=== PATIENT | female | born 1935 | race Two or more races ===

== ENCOUNTER 2020-11-27 07:34 | Inpatient (IN) | payer OTHER ==
[2020-11-27] MEDS ORDERED: DIPHTH,PERTUSS(ACELL),TET 0.5 ML DISP.SYRIN IM ONE ×3 (08:34→11:17)
[2020-11-27 08:39] VITALS: BMI 23.5
[2020-11-27 11:07] LABS: BASO % 0.8 % (0-2.0); HEMATOCRIT 38.3 % (32.4-45.2); HEMOGLOBIN 13.1 GM/dL (10.7-15.3); LYMPH % 22.1 % (8-40); MCH 32.7 pg (25.7-33.7); MCHC 34.3 g/dl (32.0-36.0); MEAN CELL VOLUME 95.5 fl (80-96); MEAN PLT VOLUME 7.2 fl (7.5-11.1); MONO % 6.8 % (3.8-10.2); NEUT % 67.3 % (42.8-82.8); PLATELET COUNT 362 10^3/uL (134-434); RBC 4.02 M/mm3 (3.60-5.2); RDW 14.5 % (11.6-15.6); WHITE BLOOD COUNT 9.6 K/mm3 (4.0-10.0)
[2020-11-27 11:09] LABS: EPI CELLS 3 /uL (0-25.1); HYALINE CASTS 0 /uL (0-3.1); URINE APPEARANCE CLEAR; URINE BACTERIA 70 /uL (0-1359); URINE BILIRUBIN NEGATIVE (NEGATIVE); URINE COLOR YELLOW; URINE GLUCOSE (UA) NEGATIVE (NEGATIVE); URINE KETONE NEGATIVE (NEGATIVE); URINE LEUK ESTERASE TRACE (NEGATIVE); URINE NITRITE NEGATIVE (NEGATIVE); URINE PROTEIN NEGATIVE (NEGATIVE); URINE RBC 12 /uL (0-23.9); URINE UROBILINOGEN 0.2 mg/dL (0.2-1.0); URINE WBC 27 /uL (0-25.8)
[2020-11-27 11:14] LABS: INR 1.16 (0.83-1.09); PROTHROMBIN TIME (PATIENT) 14.3 SEC (9.7-13.0)
[2020-11-27 11:17] LABS: ACTIVATED PTT 30.7 SECONDS (25.2-36.5)
[2020-11-27 11:27] LABS: CHLORIDE 104 mmol/L (98-107); SODIUM 135 mmol/L (136-145)
[2020-11-27 11:31] LABS: ALBUMIN 3.4 g/dl (3.4-5.0); ANION GAP 3 MMOL/L (8-16); BLOOD UREA NITROGEN 12.5 mg/dL (7-18); CALCIUM 8.9 mg/dL (8.5-10.1); CO2 27 mmol/L (21-32); GLUCOSE,RANDOM 99 mg/dL (74-106)
[2020-11-27 11:35] LABS: CREATININE 0.6 mg/dL (0.55-1.3); SGOT/AST 37 U/L (15-37); SGPT/ALT 35 U/L (13-61)
[2020-11-27 11:37] LABS: ALK PHOS 90 U/L (45-117)
[2020-11-27 14:48] LABS: BLOOD UREA NITROGEN 12.2 mg/dL (7-18); CALCIUM 9.2 mg/dL (8.5-10.1)
[2020-11-27 14:52] LABS: CREATININE 0.7 mg/dL (0.55-1.3)
[2020-11-28] MEDS ORDERED: MELATONIN 1 MG TABLET PO ONE (02:49)
[2020-11-28 07:26] LABS: HEMATOCRIT 37.4 % (32.4-45.2); HEMOGLOBIN 12.7 GM/dL (10.7-15.3); MCH 32.6 pg (25.7-33.7); MCHC 33.8 g/dl (32.0-36.0); MEAN CELL VOLUME 96.4 fl (80-96); MEAN PLT VOLUME 7.3 fl (7.5-11.1); PLATELET COUNT 371 10^3/uL (134-434); RBC 3.88 M/mm3 (3.60-5.2); RDW 14.4 % (11.6-15.6); WHITE BLOOD COUNT 8.1 K/mm3 (4.0-10.0)
[2020-11-28 08:18] LABS: ALBUMIN 3.2 g/dl (3.4-5.0); BLOOD UREA NITROGEN 16.4 mg/dL (7-18); CALCIUM 8.7 mg/dL (8.5-10.1)
[2020-11-28 08:19] LABS: BILIRUBIN,TOTAL 0.7 mg/dL (0.2-1)
[2020-11-28 08:20] LABS: CREATININE 0.7 mg/dL (0.55-1.3)
[2020-11-28 08:21] LABS: TOT PROT 6.4 g/dl (6.4-8.2)
[2020-11-28] MEDS: ATORVASTATIN CA 80 MG TABLET (FP) PO SCH (21:34)
[2020-11-28] MEDS: FAMOTIDINE 20 MG TABLET PO SCH (21:34)
[2020-11-28] MEDS: METOPROLOL TARTRATE 25 MG TABLET (FP) PO SCH (21:34)
[2020-11-28] MEDS: MELATONIN 1 MG TABLET PO PRN (22:08)
[2020-11-29 07:33] LABS: HEMATOCRIT 36.3 % (32.4-45.2); HEMOGLOBIN 12.4 GM/dL (10.7-15.3); MCH 32.4 pg (25.7-33.7); MCHC 34.1 g/dl (32.0-36.0); MEAN CELL VOLUME 94.9 fl (80-96); MEAN PLT VOLUME 7.3 fl (7.5-11.1); PLATELET COUNT 337 10^3/uL (134-434); RBC 3.82 M/mm3 (3.60-5.2); RDW 14.3 % (11.6-15.6); WHITE BLOOD COUNT 7.7 K/mm3 (4.0-10.0)
[2020-11-29 07:45] LABS: ALBUMIN 3.1 g/dl (3.4-5.0); BLOOD UREA NITROGEN 11.3 mg/dL (7-18); CALCIUM 8.7 mg/dL (8.5-10.1)
[2020-11-29 07:48] LABS: CREATININE 0.5 mg/dL (0.55-1.3)
[2020-11-29 07:50] LABS: BILIRUBIN,TOTAL 0.8 mg/dL (0.2-1); TOT PROT 6.4 g/dl (6.4-8.2)
[2020-11-29 08:52] LABS: ANISOCYTOSIS 0; HELMET CELLS 0; HOWELL-JOLLY BODIES 0; MACROCYTOSIS 0; OVALOCYTE 0; PLATELET ESTIMATE NORMAL; ROULEAU 0; SICKELED CELLS 0; TARGET CELLS 0; TEAR DROP CELLS 0; TOXIC GRANULATION 0
[2020-11-29] MEDS: SERTRALINE HCL 50 MG TABLET (FP) PO SCH (09:38)
[2020-11-29] MEDS: METOPROLOL TARTRATE 25 MG TABLET (FP) PO SCH ×2 (09:38→23:03)
[2020-11-29] MEDS: CLOPIDOGREL BISULFATE 75 MG TABLET (FP) PO SCH (09:38)
[2020-11-29] MEDS: APIXABAN 5 MG TABLET PO SCH ×2 (09:38→23:04)
[2020-11-29] MEDS: MELATONIN 1 MG TABLET PO PRN (23:03)
[2020-11-29] MEDS: FAMOTIDINE 20 MG TABLET PO SCH (23:03)
[2020-11-29] MEDS: ATORVASTATIN CA 80 MG TABLET (FP) PO SCH (23:04)
[2020-11-30] MEDS: METOPROLOL TARTRATE 25 MG TABLET (FP) PO SCH ×2 (10:27→21:37)
[2020-11-30] MEDS: SERTRALINE HCL 50 MG TABLET (FP) PO SCH (10:27)
[2020-11-30] MEDS: CLOPIDOGREL BISULFATE 75 MG TABLET (FP) PO SCH (10:28)
[2020-11-30] MEDS: APIXABAN 5 MG TABLET PO SCH ×2 (10:28→21:37)
[2020-11-30] MEDS: MELATONIN 1 MG TABLET PO PRN (21:37)
[2020-11-30] MEDS: FAMOTIDINE 20 MG TABLET PO SCH (21:37)
[2020-11-30] MEDS: ATORVASTATIN CA 80 MG TABLET (FP) PO SCH (21:37)
[2020-12-01] MEDS: CLOPIDOGREL BISULFATE 75 MG TABLET (FP) PO SCH (09:43)
[2020-12-01] MEDS: APIXABAN 5 MG TABLET PO SCH ×2 (09:43→22:11)
[2020-12-01] MEDS: METOPROLOL TARTRATE 25 MG TABLET (FP) PO SCH ×2 (09:43→22:11)
[2020-12-01] MEDS: SERTRALINE HCL 50 MG TABLET (FP) PO SCH (09:43)
[2020-12-01] MEDS: ATORVASTATIN CA 80 MG TABLET (FP) PO SCH (22:11)
[2020-12-01] MEDS: MELATONIN 1 MG TABLET PO PRN (22:11)
[2020-12-01] MEDS: FAMOTIDINE 20 MG TABLET PO SCH (22:11)
[2020-12-02] MEDS: APIXABAN 5 MG TABLET PO SCH ×2 (09:50→21:50)
[2020-12-02] MEDS: CLOPIDOGREL BISULFATE 75 MG TABLET (FP) PO SCH (09:50)
[2020-12-02] MEDS: SERTRALINE HCL 50 MG TABLET (FP) PO SCH (09:50)
[2020-12-02] MEDS: METOPROLOL TARTRATE 25 MG TABLET (FP) PO SCH ×2 (09:50→21:50)
[2020-12-02] MEDS: ATORVASTATIN CA 80 MG TABLET (FP) PO SCH (21:50)
[2020-12-02] MEDS: FAMOTIDINE 20 MG TABLET PO SCH (21:50)
[2020-12-03] MEDS: SERTRALINE HCL 50 MG TABLET (FP) PO SCH (09:12)
[2020-12-03] MEDS: CLOPIDOGREL BISULFATE 75 MG TABLET (FP) PO SCH (09:12)
[2020-12-03] MEDS: METOPROLOL TARTRATE 25 MG TABLET (FP) PO SCH (09:12)
[2020-12-03] MEDS: APIXABAN 5 MG TABLET PO SCH (09:12)
[2020-12-03 15:03] VITALS: BP 113/60; PULSE 65; TEMP 98.1
== END 2020-12-03 15:00 | DRG 312 ==
LOC: JER 07:34 → JERBED 08:37 → OBSVTOIN 15:39 → J4W 23:45
PROVIDERS: ADMIT Family Medicine; ATTEND Family Medicine
DX: R55 Syncope and collapse (principal); I27.82 Chronic pulmonary embolism; G81.94 Hemiplegia, unspecified affecting left nondominant side; I25.10 Atherosclerotic heart disease of native coronary artery without angina pectoris; E78.5 Hyperlipidemia, unspecified; F32.9 Major depressive disorder, single episode, unspecified; S09.90XA Unspecified injury of head, initial encounter; F20.9 Schizophrenia, unspecified; S00.01XA Abrasion of scalp, initial encounter; W19.XXXA Unspecified fall, initial encounter; Y93.89 Activity, other specified; Y92.129 Unspecified place in nursing home as the place of occurrence of the external cause; Y99.8 Other external cause status; S63.501A Unspecified sprain of right wrist, initial encounter
CPT/HCPCS: 36415; 70450-TC; 70551-TC; 71046-TC-FY; 72125-TC; 72170-TC-FY; 73110-TC-RT-FY; 73130-TC-RT-FY; 73200-TC-RT; 80048; 80053; 80061; 81003; 82550; 82553; 84439; 84443; 84484; 85025; 85027; 85610; 85730; 87086; 87186; 90715; 93005; 93010; 93306-TC; 93880-TC; 97116-GP; 97161-GP; 99285-25; C9803; G0378; U0003; U0005

== ENCOUNTER 2021-01-03 21:02 | Inpatient (IN) | payer OTHER ==
[2021-01-03 22:28] LABS: BASO % 0.5 % (0-2.0); EOS % 3.5 % (0-4.5); HEMATOCRIT 38.3 % (32.4-45.2); HEMOGLOBIN 13.3 GM/dL (10.7-15.3); LYMPH % 22.1 % (8-40); MCH 32.9 pg (25.7-33.7); MCHC 34.8 g/dl (32.0-36.0); MEAN CELL VOLUME 94.6 fl (80-96); MEAN PLT VOLUME 6.4 fl (7.5-11.1); MONO % 8.2 % (3.8-10.2); NEUT % 65.7 % (42.8-82.8); PLATELET COUNT 356 10^3/uL (134-434); RBC 4.05 M/mm3 (3.60-5.2); RDW 14.4 % (11.6-15.6); VENOUS BASE EXCESS -3.3 mmol/L (-2-2); VENOUS O2 SATURATION 98.2 % (70-80); VENOUS PCO2 34.1 mmHg (38-52); VENOUS PH 7.4 (7.310-7.410); WHITE BLOOD COUNT 8.5 K/mm3 (4.0-10.0)
[2021-01-03 22:37] LABS: INR 1.4 (0.83-1.09); PROTHROMBIN TIME (PATIENT) 16.4 SEC (9.7-13.0)
[2021-01-03 22:51] LABS: ALBUMIN 3.2 g/dl (3.4-5.0); BLOOD UREA NITROGEN 13.1 mg/dL (7-18); CALCIUM 8.7 mg/dL (8.5-10.1)
[2021-01-03 22:54] LABS: CREATININE 0.5 mg/dL (0.55-1.3)
[2021-01-03 22:55] LABS: BILIRUBIN,TOTAL 0.7 mg/dL (0.2-1)
[2021-01-03 22:56] LABS: TOT PROT 6.4 g/dl (6.4-8.2)
[2021-01-04 05:09] LABS: URINE COLOR YELLOW
[2021-01-04 05:10] LABS: URINE APPEARANCE CLEAR; URINE BILIRUBIN NEGATIVE (NEGATIVE); URINE GLUCOSE (UA) NEGATIVE (NEGATIVE); URINE KETONE NEGATIVE (NEGATIVE); URINE NITRITE NEGATIVE (NEGATIVE); URINE PROTEIN NEGATIVE (NEGATIVE); URINE UROBILINOGEN 0.2 mg/dL (0.2-1.0)
[2021-01-04 05:11] LABS: URINE LEUK ESTERASE 1+ (NEGATIVE)
[2021-01-04] MEDS ORDERED: SODIUM CHLORIDE 1,000 ML IV SCH (06:00)
[2021-01-04] MEDS ORDERED: POTASSIUM CHLORIDE 10 MEQ in DEXTROSE 5%-NORMAL SALINE 995 ML IV SCH (09:00)
[2021-01-04 11:45] LABS: PH,URINE 6.5 (5.0-8.0); URINE APPEARANCE Clear; URINE BILIRUBIN Negative (NEGATIVE); URINE COLOR Yellow; URINE GLUCOSE (UA) Negative (NEGATIVE); URINE KETONE Negative (NEGATIVE); URINE LEUK ESTERASE Trace (NEGATIVE); URINE NITRITE Negative (NEGATIVE); URINE PROTEIN Negative (NEGATIVE); URINE UROBILINOGEN 0.2 mg/dL (0.2-1.0)
[2021-01-04] MEDS: METOPROLOL TARTRATE 25 MG TABLET (FP) PO SCH ×2 (11:46→22:18)
[2021-01-04] MEDS: CLOPIDOGREL BISULFATE 75 MG TABLET (FP) PO SCH (11:47)
[2021-01-04] MEDS: APIXABAN 5 MG TABLET PO SCH ×2 (11:47→22:18)
[2021-01-04 12:07] LABS: EPI CELLS RARE /HPF; URINE RBC 0-2 /hpf (0-4); URINE WBC 0-2 (NEGATIVE)
[2021-01-04 12:15] LABS: BASO % 0.7 % (0-2.0); EOS % 3.3 % (0-4.5); HEMATOCRIT 40.5 % (32.4-45.2); HEMOGLOBIN 14.2 GM/dL (10.7-15.3); MCH 32.5 pg (25.7-33.7); MCHC 35.1 g/dl (32.0-36.0); MEAN CELL VOLUME 92.7 fl (80-96); MEAN PLT VOLUME 6.3 fl (7.5-11.1); MONO % 9.7 % (3.8-10.2); NEUT % 62.3 % (42.8-82.8); PLATELET COUNT 347 10^3/uL (134-434); RBC 4.37 M/mm3 (3.60-5.2); RDW 14.5 % (11.6-15.6); WHITE BLOOD COUNT 7.4 K/mm3 (4.0-10.0)
[2021-01-04 12:24] LABS: ALBUMIN 3.3 g/dl (3.4-5.0); CALCIUM 9.2 mg/dL (8.5-10.1)
[2021-01-04 12:25] LABS: BLOOD UREA NITROGEN 10.9 mg/dL (7-18)
[2021-01-04 12:28] LABS: CREATININE 0.5 mg/dL (0.55-1.3)
[2021-01-04 12:29] LABS: BILIRUBIN,TOTAL 1.2 mg/dL (0.2-1); TOT PROT 6.7 g/dl (6.4-8.2)
[2021-01-04] MEDS ORDERED: PT OWN MED DRAWER 7, Y5N ONE (12:59)
[2021-01-04] MEDS ORDERED: SODIUM CHLORIDE 1 GM TABLET PO ONE (14:15)
[2021-01-04] MEDS: QUEtiapine FUMARATE 50 MG TABLET PO SCH (22:18)
[2021-01-04] MEDS: ATORVASTATIN CA 80 MG TABLET (FP) PO SCH (22:18)
[2021-01-05] MEDS: METOPROLOL TARTRATE 25 MG TABLET (FP) PO SCH ×2 (10:05→21:43)
[2021-01-05] MEDS: APIXABAN 5 MG TABLET PO SCH ×2 (10:05→21:43)
[2021-01-05] MEDS: PANTOPRAZOLE SODIUM 40 MG VIAL IVPUSH SCH (10:05)
[2021-01-05] MEDS: CLOPIDOGREL BISULFATE 75 MG TABLET (FP) PO SCH (10:05)
[2021-01-05] MEDS: QUEtiapine FUMARATE 25 MG TABLET PO SCH (10:05)
[2021-01-05] MEDS: ATORVASTATIN CA 80 MG TABLET (FP) PO SCH (21:43)
[2021-01-05] MEDS: QUEtiapine FUMARATE 50 MG TABLET PO SCH (21:44)
[2021-01-06 10:08] LABS: BASO % 0.6 % (0-2.0); EOS % 4.8 % (0-4.5); HEMOGLOBIN 13.8 GM/dL (10.7-15.3); LYMPH % 22.5 % (8-40); MCH 32.9 pg (25.7-33.7); MCHC 34.5 g/dl (32.0-36.0); MEAN CELL VOLUME 95.4 fl (80-96); MEAN PLT VOLUME 6.6 fl (7.5-11.1); MONO % 10.1 % (3.8-10.2); PLATELET COUNT 356 10^3/uL (134-434); RDW 14.2 % (11.6-15.6); WHITE BLOOD COUNT 7.1 K/mm3 (4.0-10.0)
[2021-01-06 10:34] LABS: CALCIUM 9.4 mg/dL (8.5-10.1)
[2021-01-06 10:35] LABS: ALBUMIN 3.1 g/dl (3.4-5.0); BLOOD UREA NITROGEN 17.3 mg/dL (7-18)
[2021-01-06] MEDS: PANTOPRAZOLE SODIUM 40 MG VIAL IVPUSH SCH (10:36)
[2021-01-06] MEDS: APIXABAN 5 MG TABLET PO SCH ×2 (10:37→21:03)
[2021-01-06] MEDS: QUEtiapine FUMARATE 25 MG TABLET PO SCH (10:37)
[2021-01-06] MEDS: METOPROLOL TARTRATE 25 MG TABLET (FP) PO SCH ×2 (10:37→21:02)
[2021-01-06] MEDS: CLOPIDOGREL BISULFATE 75 MG TABLET (FP) PO SCH (10:37)
[2021-01-06 10:38] LABS: CREATININE 0.7 mg/dL (0.55-1.3)
[2021-01-06 10:39] LABS: TOT PROT 6.5 g/dl (6.4-8.2)
[2021-01-06] MEDS: ATORVASTATIN CA 80 MG TABLET (FP) PO SCH (21:03)
[2021-01-06] MEDS: QUEtiapine FUMARATE 50 MG TABLET PO SCH (21:03)
[2021-01-07] MEDS: APIXABAN 5 MG TABLET PO SCH ×2 (10:36→21:01)
[2021-01-07] MEDS: METOPROLOL TARTRATE 25 MG TABLET (FP) PO SCH ×2 (10:36→21:01)
[2021-01-07] MEDS: CLOPIDOGREL BISULFATE 75 MG TABLET (FP) PO SCH (10:36)
[2021-01-07] MEDS: QUEtiapine FUMARATE 25 MG TABLET PO SCH (10:36)
[2021-01-07] MEDS: PANTOPRAZOLE SODIUM 40 MG VIAL IVPUSH SCH (10:36)
[2021-01-07] MEDS: QUEtiapine FUMARATE 50 MG TABLET PO SCH (21:01)
[2021-01-07] MEDS: ATORVASTATIN CA 80 MG TABLET (FP) PO SCH (21:01)
[2021-01-07 22:59] VITALS: BMI 26.6
[2021-01-08] MEDS: APIXABAN 5 MG TABLET PO SCH (09:55)
[2021-01-08] MEDS: METOPROLOL TARTRATE 25 MG TABLET (FP) PO SCH (09:55)
[2021-01-08] MEDS: QUEtiapine FUMARATE 25 MG TABLET PO SCH (09:55)
[2021-01-08] MEDS: CLOPIDOGREL BISULFATE 75 MG TABLET (FP) PO SCH (09:55)
[2021-01-08] MEDS: PANTOPRAZOLE SODIUM 40 MG VIAL IVPUSH SCH (10:00)
[2021-01-08] MEDS ORDERED: MULTIVITAMINS (DAILY MVI) TABLET (FP) PO SCH (11:30)
[2021-01-08 14:50] VITALS: BP 114/72; PULSE 73; TEMP 98.1
== END 2021-01-08 20:10 | DRG 918 ==
LOC: JER 21:02 → JERBED 23:00 → J6S 01-04 07:51
PROVIDERS: ADMIT Family Medicine; ATTEND Family Medicine
DX: T51.0X2A Toxic effect of ethanol, intentional self-harm, initial encounter (principal); E87.1 Hypo-osmolality and hyponatremia; I27.82 Chronic pulmonary embolism; E78.5 Hyperlipidemia, unspecified; F03.90 Unspecified dementia, unspecified severity, without behavioral disturbance, psychotic disturbance, mood disturbance, and anxiety; I25.10 Atherosclerotic heart disease of native coronary artery without angina pectoris; I10 Essential (primary) hypertension; F20.9 Schizophrenia, unspecified
CPT/HCPCS: 36415; 70450-TC; 71045-TC-FY; 72125-TC; 80053; 80307; 81003; 82010; 82140; 82436; 82550; 82607; 82803; 82962; 83930; 83935; 84133; 84300; 84439; 84443; 84484; 85025; 85610; 85730; 86780; 87086; 93005; 93010; 97116-GP; 97162-GP; 99285-25; C9803; U0003; U0005

== ENCOUNTER 2021-04-27 13:13 | Emergency (ER) | payer OTHER ==
[2021-04-27 13:33] VITALS: TEMP 97.6; BMI 26.4
[2021-04-27 14:55] VITALS: BP 108/55; PULSE 71
== END 2021-04-27 17:30 | disposition home or self-care (01) ==
LOC: FER 13:13
PROC: 2W3CX1Z Immobilization of Right Lower Arm using Splint (ICD-10-PCS; principal; 2021-04-27)
DX: S09.90XA Unspecified injury of head, initial encounter (principal); M25.531 Pain in right wrist; W19.XXXA Unspecified fall, initial encounter; Y92.9 Unspecified place or not applicable
CPT/HCPCS: 29125; 70450-TC; 70486-TC; 72125-TC; 73110-TC-RT-FY; 73130-TC-RT-FY; 99285-25

== ENCOUNTER 2021-06-13 09:12 | Inpatient (IN) | payer OTHER ==
[2021-06-13 10:45] LABS: BASO % 0.1 % (0-2.0); EOS % 0.9 % (0-4.5); HEMATOCRIT 36.8 % (32.4-45.2); HEMOGLOBIN 12.6 GM/dL (10.7-15.3); LYMPH % 10.2 % (8-40); MCHC 34.2 g/dl (32.0-36.0); MEAN CELL VOLUME 93.6 fl (80-96); MONO % 9.2 % (3.8-10.2); NEUT % 79.6 % (42.8-82.8); PLATELET COUNT 253 10^3/uL (134-434); RBC 3.93 M/mm3 (3.60-5.2); RDW 14.2 % (11.6-15.6)
[2021-06-13 10:53] LABS: INR 1.36 (0.83-1.09); PROTHROMBIN TIME (PATIENT) 15.7 SEC (9.7-13.0)
[2021-06-13] MEDS ORDERED: ACETAMINOPHEN 1000 MG/100 ML BAG IVPB ONE (10:55)
[2021-06-13 10:56] LABS: ACTIVATED PTT 34.5 SECONDS (25.2-36.5)
[2021-06-13] MEDS ORDERED: ACETAMINOPHEN INJECTION 100 ML IVPB ONE (11:06)
[2021-06-13 11:13] LABS: PH,URINE 5.5 (5.0-8.0); URINE APPEARANCE Clear; URINE BILIRUBIN Negative (NEGATIVE); URINE COLOR Yellow; URINE GLUCOSE (UA) Negative (NEGATIVE); URINE KETONE Negative (NEGATIVE); URINE LEUK ESTERASE 3+ (NEGATIVE); URINE NITRITE Positive (NEGATIVE); URINE PROTEIN Trace (NEGATIVE); URINE UROBILINOGEN 0.2 mg/dL (0.2-1.0)
[2021-06-13 11:23] LABS: ALBUMIN 3.3 g/dl (3.4-5.0); BLOOD UREA NITROGEN 18.9 mg/dL (7-18); CALCIUM 8.8 mg/dL (8.5-10.1)
[2021-06-13 11:26] LABS: CREATININE 0.7 mg/dL (0.55-1.3)
[2021-06-13 11:28] LABS: BILIRUBIN,TOTAL 1.1 mg/dL (0.2-1); TOT PROT 6.6 g/dl (6.4-8.2)
[2021-06-13] MEDS: SODIUM CHLORIDE 1,000 ML IV SCH (12:43)
[2021-06-13 14:06] LABS: EPI CELLS 1 /uL (0-25.1); HYALINE CASTS 0 /uL (0-3.1); URINE BACTERIA >9,000 /uL (0-1359); URINE RBC 31 /uL (0-23.9); URINE WBC 1867 /uL (0-25.8)
[2021-06-13] MEDS ORDERED: ACETAMINOPHEN 325 MG TABLET (FP) PO PRN (16:29)
[2021-06-13] MEDS ORDERED: ATORVASTATIN CA 40 MG TABLET (FP) ONE (21:03)
[2021-06-13] MEDS: METOPROLOL TARTRATE 25 MG TABLET (FP) PO SCH (21:05)
[2021-06-13] MEDS: ATORVASTATIN CA 80 MG TABLET (FP) PO SCH (21:05)
[2021-06-13] MEDS: APIXABAN 5 MG TABLET PO SCH (21:05)
[2021-06-13] MEDS: QUEtiapine FUMARATE 25 MG TABLET PO SCH (21:05)
[2021-06-14 07:31] LABS: BASO % 0.2 % (0-2.0); EOS % 3.2 % (0-4.5); HEMATOCRIT 36.5 % (32.4-45.2); HEMOGLOBIN 12.2 GM/dL (10.7-15.3); LYMPH % 20.6 % (8-40); MCH 31.5 pg (25.7-33.7); MCHC 33.5 g/dl (32.0-36.0); MEAN CELL VOLUME 94.1 fl (80-96); MEAN PLT VOLUME 7.3 fl (7.5-11.1); MONO % 11.3 % (3.8-10.2); NEUT % 64.7 % (42.8-82.8); PLATELET COUNT 259 10^3/uL (134-434); RBC 3.88 M/mm3 (3.60-5.2); RDW 14.2 % (11.6-15.6); WHITE BLOOD COUNT 9.2 K/mm3 (4.0-10.0)
[2021-06-14 07:54] LABS: ALBUMIN 2.8 g/dl (3.4-5.0); BLOOD UREA NITROGEN 15.6 mg/dL (7-18); CALCIUM 8.2 mg/dL (8.5-10.1); MAGNESIUM 2.2 mg/dL (1.8-2.4)
[2021-06-14 07:58] LABS: CREATININE 0.6 mg/dL (0.55-1.3)
[2021-06-14 07:59] LABS: TOT PROT 6.2 g/dl (6.4-8.2)
[2021-06-14 08:00] LABS: BILIRUBIN,TOTAL 1.3 mg/dL (0.2-1)
[2021-06-14] MEDS ORDERED: CLOPIDOGREL BISULFATE 75 MG TABLET (FP) PO SCH (10:00)
[2021-06-14] MEDS ORDERED: CEFTRIAXONE 1 GM in DEXTROSE 5%-WATER - 50 ML IVPB SCH (10:00)
[2021-06-14] MEDS: FAMOTIDINE 20 MG TABLET PO SCH (10:12)
[2021-06-14] MEDS: APIXABAN 5 MG TABLET PO SCH ×2 (10:13→21:21)
[2021-06-14] MEDS: SODIUM CHLORIDE 1,000 ML IV SCH ×2 (10:13→16:51)
[2021-06-14] MEDS: METOPROLOL TARTRATE 25 MG TABLET (FP) PO SCH ×2 (10:13→21:21)
[2021-06-14 14:58] VITALS: BMI 27.3
[2021-06-14] MEDS ORDERED: DEXTROSE 5%-WATER 100 ML IVPB ONE (15:53)
[2021-06-14] MEDS: CEFTRIAXONE 2 GM in DEXTROSE 5%-WATER 100 ML IVPB SCH (15:55)
[2021-06-14] MEDS ORDERED: ATORVASTATIN CA 40 MG TABLET (FP) ONE (21:17)
[2021-06-14] MEDS: ATORVASTATIN CA 80 MG TABLET (FP) PO SCH (21:21)
[2021-06-14] MEDS: QUEtiapine FUMARATE 25 MG TABLET PO SCH (21:21)
[2021-06-15] MEDS ORDERED: DEXTROSE 5%-WATER 100 ML IVPB ONE (09:10)
[2021-06-15] MEDS: METOPROLOL TARTRATE 25 MG TABLET (FP) PO SCH ×2 (09:24→22:31)
[2021-06-15] MEDS: FAMOTIDINE 20 MG TABLET PO SCH (09:24)
[2021-06-15] MEDS: APIXABAN 5 MG TABLET PO SCH ×2 (09:24→22:30)
[2021-06-15] MEDS: SODIUM CHLORIDE 1,000 ML IV SCH ×2 (09:25→15:00)
[2021-06-15] MEDS: CEFTRIAXONE 2 GM in DEXTROSE 5%-WATER 100 ML IVPB SCH (09:25)
[2021-06-15] MEDS: ACETAMINOPHEN 325 MG TABLET (FP) PO PRN (15:31)
[2021-06-15] MEDS ORDERED: ATORVASTATIN CA 40 MG TABLET (FP) ONE (22:28)
[2021-06-15] MEDS: ATORVASTATIN CA 80 MG TABLET (FP) PO SCH (22:31)
[2021-06-15] MEDS: QUEtiapine FUMARATE 25 MG TABLET PO SCH (22:31)
[2021-06-16 08:48] LABS: BASO % 0.5 % (0-2.0); EOS % 13.5 % (0-4.5); HEMOGLOBIN 11.8 GM/dL (10.7-15.3); LYMPH % 28.6 % (8-40); MCH 31.5 pg (25.7-33.7); MCHC 33.7 g/dl (32.0-36.0); MEAN CELL VOLUME 93.6 fl (80-96); MEAN PLT VOLUME 7.3 fl (7.5-11.1); NEUT % 48.4 % (42.8-82.8); PLATELET COUNT 296 10^3/uL (134-434); RBC 3.73 M/mm3 (3.60-5.2); RDW 13.9 % (11.6-15.6); WHITE BLOOD COUNT 5.9 K/mm3 (4.0-10.0)
[2021-06-16 09:11] LABS: ALBUMIN 2.6 g/dl (3.4-5.0); BLOOD UREA NITROGEN 16.1 mg/dL (7-18); CALCIUM 7.9 mg/dL (8.5-10.1)
[2021-06-16 09:13] LABS: CREATININE 0.6 mg/dL (0.55-1.3)
[2021-06-16 09:16] LABS: BILIRUBIN,TOTAL 0.4 mg/dL (0.2-1); TOT PROT 5.9 g/dl (6.4-8.2)
[2021-06-16] MEDS ORDERED: DEXTROSE 5%-WATER 100 ML IVPB ONE (09:18)
[2021-06-16] MEDS: FAMOTIDINE 40 MG TABLET PO SCH (12:13)
[2021-06-16] MEDS: CEFTRIAXONE 2 GM in DEXTROSE 5%-WATER 100 ML IVPB SCH (12:15)
[2021-06-16] MEDS: METOPROLOL TARTRATE 25 MG TABLET (FP) PO SCH ×2 (12:15→21:01)
[2021-06-16] MEDS: APIXABAN 5 MG TABLET PO SCH ×2 (12:15→21:01)
[2021-06-16] MEDS: SODIUM CHLORIDE 1,000 ML IV SCH (15:00)
[2021-06-16] MEDS: ACETAMINOPHEN 325 MG TABLET (FP) PO PRN (15:27)
[2021-06-16] MEDS ORDERED: ATORVASTATIN CA 40 MG TABLET (FP) ONE (20:44)
[2021-06-16] MEDS: QUEtiapine FUMARATE 25 MG TABLET PO SCH (21:01)
[2021-06-16] MEDS: ATORVASTATIN CA 80 MG TABLET (FP) PO SCH (21:01)
[2021-06-17] MEDS: APIXABAN 5 MG TABLET PO SCH ×2 (09:08→22:37)
[2021-06-17] MEDS: METOPROLOL TARTRATE 25 MG TABLET (FP) PO SCH ×2 (09:08→22:37)
[2021-06-17] MEDS: FAMOTIDINE 40 MG TABLET PO SCH (09:08)
[2021-06-17 09:59] LABS: ALBUMIN 2.9 g/dl (3.4-5.0); CREATININE 0.6 mg/dL (0.55-1.3)
[2021-06-17 10:00] LABS: BLOOD UREA NITROGEN 15.9 mg/dL (7-18)
[2021-06-17 10:01] LABS: BILIRUBIN,TOTAL 0.6 mg/dL (0.2-1); CALCIUM 8.6 mg/dL (8.5-10.1); TOT PROT 6.5 g/dl (6.4-8.2)
[2021-06-17] MEDS: QUEtiapine FUMARATE 25 MG TABLET PO SCH (22:36)
[2021-06-18 06:21] VITALS: BP 130/79; PULSE 59; TEMP 97.8
[2021-06-18 07:09] LABS: BLOOD UREA NITROGEN 20.1 mg/dL (7-18)
[2021-06-18 07:10] LABS: ALBUMIN 2.8 g/dl (3.4-5.0); CALCIUM 8.9 mg/dL (8.5-10.1)
[2021-06-18 07:12] LABS: BILIRUBIN,DIRECT 0.1 mg/dL (0.0-0.2); CREATININE 0.7 mg/dL (0.55-1.3)
[2021-06-18 07:14] LABS: BILIRUBIN,TOTAL 0.4 mg/dL (0.2-1); TOT PROT 6.4 g/dl (6.4-8.2)
[2021-06-18] MEDS: APIXABAN 5 MG TABLET PO SCH (09:20)
[2021-06-18] MEDS: METOPROLOL TARTRATE 25 MG TABLET (FP) PO SCH (09:20)
== END 2021-06-18 15:25 | disposition home or self-care (01) | DRG 690 ==
LOC: JER 09:12 → JERBED 11:48 → J4S 16:51
PROVIDERS: ADMIT Family Medicine; ATTEND Family Medicine
DX: N39.0 Urinary tract infection, site not specified (principal); I10 Essential (primary) hypertension; F02.80 Dementia in other diseases classified elsewhere, unspecified severity, without behavioral disturbance, psychotic disturbance, mood disturbance, and anxiety; F20.9 Schizophrenia, unspecified; G30.9 Alzheimer's disease, unspecified; I25.10 Atherosclerotic heart disease of native coronary artery without angina pectoris; E78.5 Hyperlipidemia, unspecified; K21.9 Gastro-esophageal reflux disease without esophagitis; E78.00 Pure hypercholesterolemia, unspecified; R26.2 Difficulty in walking, not elsewhere classified; R53.1 Weakness; K76.0 Fatty (change of) liver, not elsewhere classified
CPT/HCPCS: 36415; 70450-TC; 73030-TC-LT-FY; 73060-TC-LT-FY; 73070-TC-LT-FY; 76705-TC; 76856-TC; 80053; 80061; 80076; 81003; 82550; 82962; 83036; 83735; 84443; 84484; 85025; 85610; 85730; 86708; 86803; 86850; 86900; 86901; 87040; 87086; 87340; 87517; 93005; 93010; 97116-GP; 97161-GP; 99285-25; C9803-CS; U0003; U0005

== ENCOUNTER 2021-07-26 14:52 | Inpatient (IN) | payer OTHER ==
[2021-07-26 16:53] LABS: BASO % 0.1 % (0-2.0); HEMATOCRIT 47.6 % (32.4-45.2); HEMOGLOBIN 15.9 GM/dL (10.7-15.3); MCHC 33.4 g/dl (32.0-36.0); MEAN CELL VOLUME 95.7 fl (80-96); MEAN PLT VOLUME 7.4 fl (7.5-11.1); MONO % 8.2 % (3.8-10.2); NEUT % 78.7 % (42.8-82.8); PLATELET COUNT 342 10^3/uL (134-434); RBC 4.98 M/mm3 (3.60-5.2); RDW 15.3 % (11.6-15.6); WHITE BLOOD COUNT 8.6 K/mm3 (4.0-10.0)
[2021-07-26 16:56] LABS: EPI CELLS 7 /uL (0-25.1); HYALINE CASTS 1 /uL (0-3.1); PH,URINE 5.5 (5.0-8.0); URINE APPEARANCE CLOUDY; URINE BACTERIA >9,000 /uL (0-1359); URINE BILIRUBIN NEGATIVE (NEGATIVE); URINE COLOR DK YELLOW; URINE GLUCOSE (UA) NEGATIVE (NEGATIVE); URINE KETONE TRACE (NEGATIVE); URINE LEUK ESTERASE 3+ (NEGATIVE); URINE NITRITE POSITIVE (NEGATIVE); URINE PROTEIN 1+ (NEGATIVE); URINE RBC 19 /uL (0-23.9); URINE UROBILINOGEN 0.2 mg/dL (0.2-1.0); URINE WBC 1238 /uL (0-25.8)
[2021-07-26 17:28] LABS: INR 1.04 (0.83-1.09)
[2021-07-26] MEDS ORDERED: CEFTRIAXONE 1,000 MG in DEXTROSE 5%-WATER - 50 ML IVPB ONE (17:32)
[2021-07-26 17:36] LABS: BLOOD UREA NITROGEN 25.8 mg/dL (7-18)
[2021-07-26 17:37] LABS: ALBUMIN 4.5 g/dl (3.4-5.0); CALCIUM 9.9 mg/dL (8.5-10.1); MAGNESIUM 2.7 mg/dL (1.8-2.4)
[2021-07-26] MEDS ORDERED: CIPROFLOXACIN 400 MG/D5W 400 MG/200 ML IVPB IVPB ONE (17:37)
[2021-07-26 17:40] LABS: PHOSPHOROUS 3.9 mg/dL (2.5-4.9)
[2021-07-26 17:41] LABS: TOT PROT 8.7 g/dl (6.4-8.2)
[2021-07-26 17:42] LABS: BILIRUBIN,TOTAL 1.1 mg/dL (0.2-1)
[2021-07-26] MEDS ORDERED: MELATONIN 1 MG TABLET PO PRN (18:12)
[2021-07-26] MEDS ORDERED: QUEtiapine FUMARATE 25 MG TABLET ONE (21:39)
[2021-07-26] MEDS: ATORVASTATIN CA 80 MG TABLET (FP) PO SCH (21:41)
[2021-07-26] MEDS: traZODone HCL 50 MG TABLET (FP) PO SCH (21:41)
[2021-07-26] MEDS: APIXABAN 5 MG TABLET PO SCH (21:41)
[2021-07-26] MEDS: SENNOSIDES 8.6MG TABLET (FP) PO SCH (21:42)
[2021-07-26] MEDS ORDERED: QUEtiapine FUMARATE 50 MG TABLET PO SCH (22:00)
[2021-07-26 23:52] VITALS: BMI 31.9
[2021-07-27 08:12] LABS: BASO % 0.2 % (0-2.0); EOS % 0.3 % (0-4.5); HEMATOCRIT 46.6 % (32.4-45.2); HEMOGLOBIN 15.4 GM/dL (10.7-15.3); MCH 31.8 pg (25.7-33.7); MCHC 33.1 g/dl (32.0-36.0); MEAN CELL VOLUME 96.1 fl (80-96); MEAN PLT VOLUME 7.8 fl (7.5-11.1); MONO % 9.6 % (3.8-10.2); NEUT % 80.9 % (42.8-82.8); PLATELET COUNT 317 10^3/uL (134-434); RBC 4.85 M/mm3 (3.60-5.2)
[2021-07-27] MEDS: METOPROLOL TARTRATE 25 MG TABLET (FP) PO SCH (09:53)
[2021-07-27] MEDS: CLOPIDOGREL BISULFATE 75 MG TABLET (FP) PO SCH (09:53)
[2021-07-27] MEDS: FAMOTIDINE 20 MG TABLET PO SCH (09:53)
[2021-07-27] MEDS: SERTRALINE HCL 50 MG TABLET (FP) PO SCH (09:53)
[2021-07-27] MEDS: APIXABAN 5 MG TABLET PO SCH ×2 (09:54→22:10)
[2021-07-27] MEDS ORDERED: ENOXAPARIN NA (PORCINE) 40 MG/0.4 ML DISP.SYRIN SQ SCH (10:00)
[2021-07-27] MEDS: SENNOSIDES 8.6MG TABLET (FP) PO SCH (22:10)
[2021-07-27] MEDS: ATORVASTATIN CA 80 MG TABLET (FP) PO SCH (22:10)
[2021-07-27] MEDS: traZODone HCL 50 MG TABLET (FP) PO SCH (22:10)
[2021-07-27] MEDS: QUEtiapine FUMARATE 100 MG TABLET (FP) PO SCH (22:10)
[2021-07-28] MEDS: METOPROLOL TARTRATE 25 MG TABLET (FP) PO SCH (09:18)
[2021-07-28] MEDS: FAMOTIDINE 20 MG TABLET PO SCH (09:18)
[2021-07-28] MEDS: SERTRALINE HCL 50 MG TABLET (FP) PO SCH (09:18)
[2021-07-28] MEDS: CLOPIDOGREL BISULFATE 75 MG TABLET (FP) PO SCH (09:18)
[2021-07-28] MEDS: APIXABAN 5 MG TABLET PO SCH ×2 (09:18→21:39)
[2021-07-28] MEDS ORDERED: ACETAMINOPHEN 325 MG TABLET (FP) ONE (11:41)
[2021-07-28] MEDS ORDERED: ACETAMINOPHEN 325 MG TABLET (FP) PO PRN (12:07)
[2021-07-28 21:03] LABS: BLOOD UREA NITROGEN 37.5 mg/dL (7-18)
[2021-07-28 21:07] LABS: TOT PROT 6.8 g/dl (6.4-8.2)
[2021-07-28 21:08] LABS: BILIRUBIN,TOTAL 1.6 mg/dL (0.2-1)
[2021-07-28 21:34] LABS: ALBUMIN 3.2 g/dl (3.4-5.0); CALCIUM 8.2 mg/dL (8.5-10.1)
[2021-07-28] MEDS: SENNOSIDES 8.6MG TABLET (FP) PO SCH (21:39)
[2021-07-28] MEDS: traZODone HCL 50 MG TABLET (FP) PO SCH (21:39)
[2021-07-28] MEDS: ATORVASTATIN CA 80 MG TABLET (FP) PO SCH (21:39)
[2021-07-28] MEDS: QUEtiapine FUMARATE 100 MG TABLET (FP) PO SCH (21:39)
[2021-07-29] MEDS: NITROFURANTOIN MACROCRYSTAL 50 MG CAPSULE (FP) PO SCH ×5 (00:27→23:53)
[2021-07-29 07:59] LABS: HEMATOCRIT 40.7 % (32.4-45.2); HEMOGLOBIN 13.9 GM/dL (10.7-15.3); MCH 31.9 pg (25.7-33.7); MCHC 34.1 g/dl (32.0-36.0); MEAN CELL VOLUME 93.7 fl (80-96); MEAN PLT VOLUME 7.6 fl (7.5-11.1); PLATELET COUNT 227 10^3/uL (134-434); RBC 4.35 M/mm3 (3.60-5.2); RDW 14.9 % (11.6-15.6); WHITE BLOOD COUNT 3.3 K/mm3 (4.0-10.0)
[2021-07-29] MEDS: CLOPIDOGREL BISULFATE 75 MG TABLET (FP) PO SCH (09:22)
[2021-07-29] MEDS: SERTRALINE HCL 50 MG TABLET (FP) PO SCH (09:22)
[2021-07-29] MEDS: FAMOTIDINE 20 MG TABLET PO SCH (09:22)
[2021-07-29] MEDS: APIXABAN 5 MG TABLET PO SCH ×2 (09:22→22:37)
[2021-07-29] MEDS: METOPROLOL TARTRATE 25 MG TABLET (FP) PO SCH ×2 (09:22→22:37)
[2021-07-29] MEDS: traZODone HCL 50 MG TABLET (FP) PO SCH (22:36)
[2021-07-29] MEDS: ATORVASTATIN CA 80 MG TABLET (FP) PO SCH (22:36)
[2021-07-29] MEDS: SENNOSIDES 8.6MG TABLET (FP) PO SCH (22:37)
[2021-07-29] MEDS: QUEtiapine FUMARATE 100 MG TABLET (FP) PO SCH (22:37)
[2021-07-30] MEDS: NITROFURANTOIN MACROCRYSTAL 50 MG CAPSULE (FP) PO SCH ×2 (05:36→14:22)
[2021-07-30] MEDS: METOPROLOL TARTRATE 25 MG TABLET (FP) PO SCH (09:47)
[2021-07-30] MEDS: FAMOTIDINE 20 MG TABLET PO SCH (09:47)
[2021-07-30] MEDS: CLOPIDOGREL BISULFATE 75 MG TABLET (FP) PO SCH (09:47)
[2021-07-30] MEDS: APIXABAN 5 MG TABLET PO SCH (09:48)
[2021-07-30] MEDS: SERTRALINE HCL 50 MG TABLET (FP) PO SCH (09:48)
[2021-07-30 15:28] VITALS: BP 125/77; PULSE 76; TEMP 97.8
== END 2021-07-30 17:39 | disposition home or self-care (01) | DRG 690 ==
LOC: JER 14:52 → MERGE 17:39 → JERBED 17:39 → J4S 20:55
PROVIDERS: ADMIT Internal Medicine; ATTEND Internal Medicine
DX: N39.0 Urinary tract infection, site not specified (principal); F03.91 Unspecified dementia, unspecified severity, with behavioral disturbance; R19.7 Diarrhea, unspecified; I25.10 Atherosclerotic heart disease of native coronary artery without angina pectoris; I48.91 Unspecified atrial fibrillation; F20.9 Schizophrenia, unspecified; B96.20 Unspecified Escherichia coli [E. coli] as the cause of diseases classified elsewhere
CPT/HCPCS: 0241U-QW; 36415; 71045-TC-FY; 80053; 81003; 82272; 83735; 84100; 84484; 85025; 85027; 85610; 85730; 87086; 87186; 93005; 93010; 97116-GP; 97161-GP; 99285-25

== ENCOUNTER 2021-09-16 17:55 | Emergency (ER) | payer OTHER ==
[2021-09-16 18:16] VITALS: BP 120/57; PULSE 86; TEMP 99.3; BMI 29.2
[2021-09-16 19:47] LABS: HEMATOCRIT 37.2 % (32.4-45.2); HEMOGLOBIN 12.6 G/dL (10.7-15.3); MCH 32.7 pg (25.7-33.7); MEAN CELL VOLUME 96.1 fl (80-96); MEAN PLT VOLUME 7.6 fl (7.5-11.1); PLATELET COUNT 265.8 10^3/uL (134-434); RBC 3.87 10^6/uL (3.60-5.2); RDW 14.7 % (11.6-15.6); WHITE BLOOD COUNT 8.4 10^3/uL (4.0-10.8)
[2021-09-16 19:50] LABS: ALBUMIN 3.3 g/dl (3.4-5.0); BILIRUBIN,TOTAL 1.4 mg/dl (0.2-1); CALCIUM 9.1 mg/dl (8.5-10); CREATININE 0.7 mg/dl (0.55-1.3); TOT PROT 6.3 g/dl (6.4-8.2)
[2021-09-16 19:52] LABS: PLATELET ESTIMATE ADEQUATE
== END 2021-09-16 20:21 | disposition home or self-care (01) ==
LOC: FER 17:55
DX: J06.9 Acute upper respiratory infection, unspecified (principal)
CPT/HCPCS: 0241U-QW; 36415; 71045-TC-FY; 80053; 84484; 85027; 93005; 99285-25

== ENCOUNTER 2021-09-24 16:49 | Emergency (ER) | payer OTHER ==
[2021-09-24 18:32] VITALS: BP 111/76; PULSE 74; TEMP 98.5; BMI 25.4
== END 2021-09-24 21:43 | disposition home or self-care (01) ==
LOC: JER 16:49
DX: Z04.3 Encounter for examination and observation following other accident (principal)
CPT/HCPCS: 93005; 93010; 99283-25

== ENCOUNTER 2021-10-11 18:34 | Observation (INO) | payer OTHER ==
[2021-10-11 20:19] LABS: HEMATOCRIT 37.8 % (32.4-45.2); HEMOGLOBIN 13.1 G/dL (10.7-15.3); MCH 32.6 pg (25.7-33.7); MCHC 34.6 g/dl (32.0-36.0); MEAN CELL VOLUME 94.3 fl (80-96); MEAN PLT VOLUME 7.6 fl (7.5-11.1); PLATELET COUNT 255.8 10^3/uL (134-434); RBC 4.01 10^6/uL (3.60-5.2); RDW 14.7 % (11.6-15.6); WHITE BLOOD COUNT 6.9 10^3/uL (4.0-10.8)
[2021-10-11 20:29] LABS: INR 1.27 (0.83-1.09); PROTHROMBIN TIME (PATIENT) 14.6 SEC (9.7-13.0)
[2021-10-11 20:32] LABS: ACTIVATED PTT 32.8 SECONDS (25.2-36.5)
[2021-10-11 20:35] LABS: EPITHELIAL CELLS RARE /hpf; URINE HYALINE CAST 0-2 /lpf
[2021-10-11 20:38] LABS: ALBUMIN 3.3 g/dl (3.4-5.0); BILIRUBIN,TOTAL 0.9 mg/dl (0.2-1); CALCIUM 8.9 mg/dl (8.5-10); CREATININE 0.7 mg/dl (0.55-1.3); MAGNESIUM 1.8 mg/dL (1.8-2.4); PHOSPHOROUS 4.4 mg/dl (2.5-4.9)
[2021-10-11] MEDS ORDERED: SODIUM CHLORIDE 0.9% 500 ML INFUS.BAG IV ONE (22:04)
[2021-10-11 23:47] VITALS: BMI 29.2
[2021-10-11] MEDS: APIXABAN 5 MG TABLET PO SCH (23:56)
[2021-10-12 08:19] LABS: CALCIUM 8.9 mg/dl (8.5-10); CREATININE 0.7 mg/dl (0.55-1.3)
[2021-10-12] MEDS: APIXABAN 5 MG TABLET PO SCH ×2 (09:50→21:23)
[2021-10-12] MEDS: MEMANTINE HCL 5 MG TABLET (UD) PO SCH ×2 (09:50→21:23)
[2021-10-12] MEDS: CLOPIDOGREL BISULFATE 75 MG TABLET (FP) PO SCH (09:50)
[2021-10-12] MEDS: SERTRALINE HCL 50 MG TABLET (FP) PO SCH (09:50)
[2021-10-12 10:53] LABS: HEMATOCRIT 37.9 % (32.4-45.2); HEMOGLOBIN 12.9 GM/dL (10.7-15.3); MCH 31.7 pg (25.7-33.7); MCHC 33.9 g/dl (32.0-36.0); MEAN CELL VOLUME 93.6 fl (80-96); MEAN PLT VOLUME 7.7 fl (7.5-11.1); PLATELET COUNT 250 10^3/uL (134-434); RBC 4.05 M/mm3 (3.60-5.2); RDW 15.2 % (11.6-15.6); WHITE BLOOD COUNT 5.7 K/mm3 (4.0-10.0)
[2021-10-12 12:11] LABS: ANISOCYTOSIS 0; HELMET CELLS 0; HOWELL-JOLLY BODIES 0; MACROCYTOSIS 0; OVALOCYTE 0; ROULEAU 0; SICKELED CELLS 0; TARGET CELLS 0; TEAR DROP CELLS 0; TOXIC GRANULATION 0
[2021-10-12 14:04] VITALS: RESP 16
[2021-10-12] MEDS ORDERED: QUEtiapine FUMARATE 25 MG TABLET ONE (21:21)
[2021-10-12] MEDS ORDERED: QUEtiapine FUMARATE 50 MG TABLET PO SCH (22:00)
[2021-10-12] MEDS ORDERED: SENNOSIDES 8.6MG TABLET (FP) PO SCH (22:00)
[2021-10-12] MEDS ORDERED: FAMOTIDINE 20 MG TABLET PO SCH (22:00)
[2021-10-12] MEDS ORDERED: ATORVASTATIN CA 80 MG TABLET (FP) PO SCH (22:00)
[2021-10-13 06:46] VITALS: BP 126/64; PULSE 65; TEMP 97.9
[2021-10-13 09:08] LABS: ALBUMIN 3.4 g/dl (3.4-5.0); BILIRUBIN,TOTAL 0.8 mg/dl (0.2-1); CALCIUM 9.2 mg/dl (8.5-10); CREATININE 0.8 mg/dl (0.55-1.3); TOT PROT 6.4 g/dl (6.4-8.2)
[2021-10-13] MEDS: APIXABAN 5 MG TABLET PO SCH (09:37)
[2021-10-13] MEDS: SERTRALINE HCL 50 MG TABLET (FP) PO SCH (09:37)
[2021-10-13] MEDS: MEMANTINE HCL 5 MG TABLET (UD) PO SCH (09:37)
[2021-10-13] MEDS: CLOPIDOGREL BISULFATE 75 MG TABLET (FP) PO SCH (09:37)
[2021-10-13] MEDS ORDERED: METOPROLOL TARTRATE 25 MG TABLET (FP) PO SCH (10:00)
[2021-10-13 10:15] LABS: BASO % 0.6 % (0-2.0); EOS % 10.8 % (0-4.5); HEMATOCRIT 37.2 % (32.4-45.2); HEMOGLOBIN 12.7 GM/dL (10.7-15.3); LYMPH % 33.5 % (8-40); MCH 31.7 pg (25.7-33.7); MEAN CELL VOLUME 93.2 fl (80-96); MEAN PLT VOLUME 7.7 fl (7.5-11.1); MONO % 9.3 % (3.8-10.2); NEUT % 45.8 % (42.8-82.8); PLATELET COUNT 252 10^3/uL (134-434); RBC 3.99 M/mm3 (3.60-5.2); RDW 15.1 % (11.6-15.6); WHITE BLOOD COUNT 6.8 K/mm3 (4.0-10.0)
== END 2021-10-13 14:47 | disposition home health service (06) ==
LOC: FER 18:34 → FM/S 22:30 → INTOOBSV 22:30 → FM/S 10-12 12:21
PROVIDERS: ADMIT Hospitalist; ATTEND Nurse Practitioner Acute Care
PROC: 3E0337Z Introduction of Electrolytic and Water Balance Substance into Peripheral Vein, Percutaneous Approach (ICD-10-PCS; principal; 2021-10-11)
DX: G45.9 Transient cerebral ischemic attack, unspecified (principal); I11.9 Hypertensive heart disease without heart failure; I25.10 Atherosclerotic heart disease of native coronary artery without angina pectoris; I48.91 Unspecified atrial fibrillation; R29.6 Repeated falls; F20.9 Schizophrenia, unspecified; E78.5 Hyperlipidemia, unspecified; F41.8 Other specified anxiety disorders; I25.2 Old myocardial infarction; Z86.79 Personal history of other diseases of the circulatory system; Z29.8 Encounter for other specified prophylactic measures; Z95.5 Presence of coronary angioplasty implant and graft
CPT/HCPCS: 0241U-QW; 36415; 70450-TC; 71045-TC-FY; 80048; 80053; 81003; 81015; 82550; 83735; 84100; 84484; 85025; 85027; 85610; 85730; 86850; 86900; 86901; 87086; 93005; 93970-TC; 96360; 99285-25; G0378

== ENCOUNTER 2021-10-13 17:34 | Emergency (ER) | payer OTHER ==
[2021-10-13 18:20] VITALS: BP 117/68; PULSE 74; RESP 18; TEMP 98.3; BMI 37.9
== END 2021-10-13 19:32 | disposition home or self-care (01) ==
LOC: FER 17:34
DX: S30.821A Blister (nonthermal) of abdominal wall, initial encounter (principal); X10.1XXA Contact with hot food, initial encounter
CPT/HCPCS: 99281-25

== ENCOUNTER 2022-03-04 14:45 | Emergency (ER) | payer OTHER ==
[2022-03-04 14:55] VITALS: TEMP 98.6; BMI 70.2
[2022-03-04] MEDS ORDERED: ALBUTEROL SO4 2.5/IPRATROPIUM 0.5 INH SOL 3 ML VIAL.NEB. NEB ONE ×2 (16:54→17:09)
[2022-03-04 18:03] LABS: BASO % 0.4 % (0-2.0); EOS % 4.6 % (0-4.5); HEMOGLOBIN 14.1 GM/dL (10.7-15.3); LYMPH % 24.6 % (8-40); MCH 31.5 pg (25.7-33.7); MCHC 32.8 g/dl (32.0-36.0); MEAN PLT VOLUME 7.3 fl (7.5-11.1); MONO % 10.5 % (3.8-10.2); NEUT % 59.9 % (42.8-82.8); PLATELET COUNT 208 10^3/uL (134-434); RBC 4.48 M/mm3 (3.60-5.2); RDW 14.8 % (11.6-15.6)
[2022-03-04 18:16] VITALS: BP 131/84; PULSE 80; RESP 16
[2022-03-04 18:18] LABS: PH,URINE 6.5 (5.0-8.0); URINE APPEARANCE CLEAR; URINE BILIRUBIN NEGATIVE (NEGATIVE); URINE COLOR YELLOW; URINE GLUCOSE (UA) NEGATIVE (NEGATIVE); URINE KETONE NEGATIVE (NEGATIVE); URINE LEUK ESTERASE NEGATIVE (NEGATIVE); URINE NITRITE NEGATIVE (NEGATIVE); URINE PROTEIN NEGATIVE (NEGATIVE)
[2022-03-04 18:24] LABS: ALBUMIN 3.6 g/dl (3.4-5.0)
[2022-03-04 18:25] LABS: CREATININE 0.7 mg/dL (0.55-1.3)
[2022-03-04 18:28] LABS: BILIRUBIN,TOTAL 1.1 mg/dL (0.2-1)
== END 2022-03-04 19:02 | disposition home or self-care (01) ==
LOC: JER 14:45
PROC: 3E0F7GC Introduction of Other Therapeutic Substance into Respiratory Tract, Via Natural or Artificial Opening (ICD-10-PCS; principal; 2022-03-04)
DX: R05.1 Acute cough (principal)
CPT/HCPCS: 0241U-QW; 36415; 71045-TC-FY; 80053; 81003; 85025; 87086; 93005; 93010; 94640; 99285-25

== ENCOUNTER 2022-11-17 18:50 | Observation (INO) | payer OTHER ==
[2022-11-17 19:22] VITALS: BMI 30.9
[2022-11-17 20:37] LABS: BASO % 0.3 % (0-2.0); EOS % 1.2 % (0-4.5); HEMATOCRIT 44.5 % (32.4-45.2); HEMOGLOBIN 15.2 GM/dL (10.7-15.3); LYMPH % 12.8 % (8-40); MCH 31.9 pg (25.7-33.7); MCHC 34.1 g/dl (32.0-36.0); MEAN CELL VOLUME 93.6 fl (80-96); MONO % 6.4 % (3.8-10.2); NEUT % 79.3 % (42.8-82.8); PLATELET COUNT 290 10^3/uL (134-434); RBC 4.76 M/mm3 (3.60-5.2); RDW 14.5 % (11.6-15.6); WHITE BLOOD COUNT 8.3 K/mm3 (4.0-10.0)
[2022-11-17 20:45] LABS: INR 1.1 (0.83-1.09); PROTHROMBIN TIME (PATIENT) 12.7 SEC (9.7-13.0)
[2022-11-17 20:47] LABS: ACTIVATED PTT 29.4 SECONDS (25.2-36.5)
[2022-11-17 20:55] LABS: POTASSIUM 4.7 mmol/L (3.5-5.1)
[2022-11-17 20:57] LABS: CALCIUM 9.5 mg/dL (8.5-10.1)
[2022-11-17 20:58] LABS: ALBUMIN 3.9 g/dl (3.4-5.0); BLOOD UREA NITROGEN 15.1 mg/dL (7-18); MAGNESIUM 2.1 mg/dL (1.8-2.4)
[2022-11-17 21:01] LABS: CREATININE 0.7 mg/dL (0.55-1.3)
[2022-11-17 21:02] LABS: BILIRUBIN,TOTAL 0.9 mg/dL (0.2-1); TOT PROT 7.4 g/dl (6.4-8.2)
[2022-11-17] MEDS ORDERED: ONDANSETRON 4 MG/2 ML VIAL ONE (21:46)
[2022-11-17] MEDS ORDERED: ONDANSETRON 4 MG/2 ML VIAL IVPB ONE (21:46)
[2022-11-17 22:06] LABS: EPI CELLS 6 /uL (0-25.1); HYALINE CASTS 1 /uL (0-3.1); PH,URINE 5.5 (5.0-8.0); URINE APPEARANCE CLEAR; URINE BACTERIA 4733 /uL (0-1359); URINE BILIRUBIN NEGATIVE (NEGATIVE); URINE COLOR YELLOW; URINE GLUCOSE (UA) NEGATIVE (NEGATIVE); URINE KETONE TRACE (NEGATIVE); URINE LEUK ESTERASE TRACE (NEGATIVE); URINE NITRITE NEGATIVE (NEGATIVE); URINE PROTEIN 1+ (NEGATIVE); URINE WBC 11 /uL (0-25.8)
[2022-11-17 22:09] LABS: URINE RBC 23.2 /uL (0-23.9)
[2022-11-17] MEDS ORDERED: CEFTRIAXONE 1 GM in DEXTROSE 5%-WATER - 100 ML IVPB ONE ×2 (22:45→22:49)
[2022-11-17] MEDS ORDERED: CEFTRIAXONE 1 GM/50 ML BAG ONE (22:51)
[2022-11-17 22:59] LABS: CHLORIDE 108 mmol/L (98-107); SODIUM 136 mmol/L (136-145)
[2022-11-17 23:01] LABS: BLOOD UREA NITROGEN 15.1 mg/dL (7-18); CALCIUM 8.9 mg/dL (8.5-10.1); CO2 24 mmol/L (21-32); GLUCOSE,RANDOM 140 mg/dL (74-106)
[2022-11-17 23:05] LABS: CREATININE 0.7 mg/dL (0.55-1.3)
[2022-11-17 23:22] LABS: ANION GAP 3 MMOL/L (8-16); POTASSIUM 8.5 mmol/L (3.5-5.1)
[2022-11-18] MEDS: LACTATED RINGERS SOLUTION 1,000 ML/1,000 ML INFUS.BAG IV SCH ×2 (01:57→14:21)
[2022-11-18 11:36] LABS: CALCIUM 8.9 mg/dL (8.5-10.1)
[2022-11-18 11:37] LABS: ALBUMIN 3.4 g/dl (3.4-5.0); BLOOD UREA NITROGEN 11.8 mg/dL (7-18)
[2022-11-18 11:38] LABS: CREATININE 0.6 mg/dL (0.55-1.3)
[2022-11-18 11:40] LABS: BILIRUBIN,TOTAL 1.1 mg/dL (0.2-1); TOT PROT 6.5 g/dl (6.4-8.2)
[2022-11-18] MEDS ORDERED: SERTRALINE HCL 50 MG TABLET (FP) ONE (22:26)
[2022-11-18] MEDS ORDERED: ATORVASTATIN CA 80 MG TABLET (FP) ONE (22:26)
[2022-11-18] MEDS ORDERED: METOPROLOL TARTRATE 25 MG TABLET (FP) ONE (22:26)
[2022-11-18] MEDS: ATORVASTATIN CA 80 MG TABLET (FP) PO SCH (22:32)
[2022-11-18] MEDS: QUEtiapine FUMARATE 50 MG TABLET PO SCH (22:32)
[2022-11-18] MEDS: METOPROLOL TARTRATE 25 MG TABLET (FP) PO SCH (22:32)
[2022-11-18] MEDS: MEMANTINE HCL 5 MG TABLET (UD) PO SCH (22:44)
[2022-11-19] MEDS: LACTATED RINGERS SOLUTION 1,000 ML/1,000 ML INFUS.BAG IV SCH ×2 (01:25→13:47)
[2022-11-19] MEDS: METOPROLOL TARTRATE 25 MG TABLET (FP) PO SCH ×2 (09:06→21:29)
[2022-11-19] MEDS: CLOPIDOGREL BISULFATE 75 MG TABLET (FP) PO SCH (09:06)
[2022-11-19] MEDS: SERTRALINE HCL 50 MG TABLET (FP) PO SCH (09:06)
[2022-11-19] MEDS: MEMANTINE HCL 5 MG TABLET (UD) PO SCH ×2 (09:06→21:29)
[2022-11-19 11:09] LABS: BASO % 0.2 % (0-2.0); EOS % 3.9 % (0-4.5); HEMATOCRIT 40.9 % (32.4-45.2); HEMOGLOBIN 14.1 GM/dL (10.7-15.3); LYMPH % 23.4 % (8-40); MCH 32.3 pg (25.7-33.7); MCHC 34.4 g/dl (32.0-36.0); MEAN CELL VOLUME 93.9 fl (80-96); MEAN PLT VOLUME 7.7 fl (7.5-11.1); MONO % 6.9 % (3.8-10.2); NEUT % 65.6 % (42.8-82.8); PLATELET COUNT 261 10^3/uL (134-434); RBC 4.36 M/mm3 (3.60-5.2); WHITE BLOOD COUNT 7.3 K/mm3 (4.0-10.0)
[2022-11-19 11:17] LABS: POTASSIUM 3.7 mmol/L (3.5-5.1)
[2022-11-19 11:18] LABS: ALBUMIN 3.3 g/dl (3.4-5.0); BLOOD UREA NITROGEN 7.1 mg/dL (7-18); CALCIUM 8.9 mg/dL (8.5-10.1)
[2022-11-19 11:21] LABS: CREATININE 0.6 mg/dL (0.55-1.3)
[2022-11-19 11:24] LABS: BILIRUBIN,TOTAL 1.4 mg/dL (0.2-1); TOT PROT 6.5 g/dl (6.4-8.2)
[2022-11-19] MEDS: QUEtiapine FUMARATE 50 MG TABLET PO SCH (21:29)
[2022-11-19] MEDS: ATORVASTATIN CA 80 MG TABLET (FP) PO SCH (21:29)
[2022-11-20] MEDS: LACTATED RINGERS SOLUTION 1,000 ML/1,000 ML INFUS.BAG IV SCH ×2 (02:39→14:48)
[2022-11-20 02:59] VITALS: RESP 18
[2022-11-20] MEDS: CLOPIDOGREL BISULFATE 75 MG TABLET (FP) PO SCH (09:50)
[2022-11-20] MEDS: MEMANTINE HCL 5 MG TABLET (UD) PO SCH (09:50)
[2022-11-20] MEDS: SERTRALINE HCL 50 MG TABLET (FP) PO SCH (09:50)
[2022-11-20] MEDS: METOPROLOL TARTRATE 25 MG TABLET (FP) PO SCH (09:50)
[2022-11-20 10:01] LABS: HEMATOCRIT 37.2 % (32.4-45.2); HEMOGLOBIN 13.1 GM/dL (10.7-15.3); MCH 32.8 pg (25.7-33.7); MCHC 35.2 g/dl (32.0-36.0); MEAN CELL VOLUME 93.3 fl (80-96); MEAN PLT VOLUME 7.4 fl (7.5-11.1); PLATELET COUNT 219 10^3/uL (134-434); RBC 3.99 M/mm3 (3.60-5.2); RDW 14.1 % (11.6-15.6); WHITE BLOOD COUNT 5.8 K/mm3 (4.0-10.0)
[2022-11-20 10:24] LABS: POTASSIUM 3.8 mmol/L (3.5-5.1)
[2022-11-20 10:33] LABS: ALBUMIN 2.8 g/dl (3.4-5.0); BLOOD UREA NITROGEN 7.3 mg/dL (7-18); CALCIUM 8.5 mg/dL (8.5-10.1)
[2022-11-20 10:36] LABS: CREATININE 0.5 mg/dL (0.55-1.3)
[2022-11-20 10:37] LABS: BILIRUBIN,TOTAL 1.8 mg/dL (0.2-1); TOT PROT 5.7 g/dl (6.4-8.2)
[2022-11-20 13:50] LABS: BILIRUBIN,DIRECT 0.4 mg/dL (0.0-0.2)
[2022-11-20 18:45] VITALS: BP 117/59; PULSE 75; TEMP 99
== END 2022-11-20 20:01 | disposition home health service (06) ==
LOC: JER 18:50 → JERBED 11-18 01:30 → J6S 11-19 02:36
PROVIDERS: ADMIT Internal Medicine; ATTEND Family Medicine
PROC: 3E03329 Introduction of Other Anti-infective into Peripheral Vein, Percutaneous Approach (ICD-10-PCS; principal; 2022-11-18)
PROC: 3E0337Z Introduction of Electrolytic and Water Balance Substance into Peripheral Vein, Percutaneous Approach (ICD-10-PCS; 2022-11-18)
PROC: 3E033GC Introduction of Other Therapeutic Substance into Peripheral Vein, Percutaneous Approach (ICD-10-PCS; 2022-11-18)
DX: N39.0 Urinary tract infection, site not specified (principal); K29.70 Gastritis, unspecified, without bleeding; I25.10 Atherosclerotic heart disease of native coronary artery without angina pectoris; I11.9 Hypertensive heart disease without heart failure; G30.9 Alzheimer's disease, unspecified; F02.80 Dementia in other diseases classified elsewhere, unspecified severity, without behavioral disturbance, psychotic disturbance, mood disturbance, and anxiety; F20.9 Schizophrenia, unspecified; F32.A Depression, unspecified; I25.2 Old myocardial infarction; M81.0 Age-related osteoporosis without current pathological fracture; E87.5 Hyperkalemia; Z90.79 Acquired absence of other genital organ(s); Z95.5 Presence of coronary angioplasty implant and graft; Z87.820 Personal history of traumatic brain injury; Z88.0 Allergy status to penicillin
CPT/HCPCS: 0241U-QW; 36415; 71045-TC-FY; 74177-TC; 80048; 80053; 81003; 82248; 83690; 83735; 84484; 85025; 85027; 85610; 85730; 87086; 93005; 93010; 96361; 96365; 96375; 96376; 99285-25; G0378; Q9967

== ENCOUNTER 2022-12-18 13:46 | Inpatient (IN) | payer OTHER ==
[2022-12-18 15:14] LABS: BASO % 0.5 % (0-2.0); EOS % 6.8 % (0-4.5); HEMATOCRIT 44.3 % (32.4-45.2); HEMOGLOBIN 14.7 GM/dL (10.7-15.3); MCH 31.4 pg (25.7-33.7); MCHC 33.1 g/dl (32.0-36.0); MEAN CELL VOLUME 94.7 fl (80-96); MEAN PLT VOLUME 7.4 fl (7.5-11.1); MONO % 9.8 % (3.8-10.2); NEUT % 56.9 % (42.8-82.8); PLATELET COUNT 309 10^3/uL (134-434); RBC 4.67 M/mm3 (3.60-5.2); RDW 13.7 % (11.6-15.6); WHITE BLOOD COUNT 7.1 K/mm3 (4.0-10.0)
[2022-12-18 15:34] LABS: INR 1.14 (0.83-1.09); PROTHROMBIN TIME (PATIENT) 13.2 SEC (9.7-13.0)
[2022-12-18 15:36] LABS: POTASSIUM 4.7 mmol/L (3.5-5.1)
[2022-12-18 15:37] LABS: ACTIVATED PTT 29.9 SECONDS (25.2-36.5)
[2022-12-18 15:38] LABS: CALCIUM 8.7 mg/dL (8.5-10.1)
[2022-12-18 15:40] LABS: ALBUMIN 3.4 g/dl (3.4-5.0)
[2022-12-18 15:43] LABS: CREATININE 0.7 mg/dL (0.55-1.3)
[2022-12-18 15:44] LABS: TOT PROT 7.2 g/dl (6.4-8.2)
[2022-12-18 15:45] LABS: BILIRUBIN,TOTAL 0.6 mg/dL (0.2-1)
[2022-12-18 16:32] LABS: EPI CELLS >36 /uL (0-25.1); HYALINE CASTS 22 /uL (0-3.1); PH,URINE 6.5 (5.0-8.0); URINE APPEARANCE TURBID; URINE BACTERIA >9,000 /uL (0-1359); URINE BILIRUBIN NEGATIVE (NEGATIVE); URINE COLOR YELLOW; URINE GLUCOSE (UA) NEGATIVE (NEGATIVE); URINE KETONE NEGATIVE (NEGATIVE); URINE LEUK ESTERASE 3+ (NEGATIVE); URINE NITRITE POSITIVE (NEGATIVE); URINE PROTEIN 1+ (NEGATIVE); URINE UROBILINOGEN 0.2 mg/dL (0.2-1.0); URINE WBC 22812 /uL (0-25.8)
[2022-12-18] MEDS ORDERED: CEFTRIAXONE 1,000 MG in DEXTROSE 5%-WATER - 50 ML IVPB ONE (16:47)
[2022-12-18] MEDS ORDERED: CEFTRIAXONE 1 GM/50 ML BAG ONE (17:01)
[2022-12-18 17:30] LABS: URINE RBC 280.2 /uL (0-23.9); YEAST NEGATIVE (NEGATIVE)
[2022-12-18] MEDS: ENOXAPARIN NA (PORCINE) 40 MG/0.4 ML DISP.SYRIN SQ SCH (20:10)
[2022-12-18] MEDS: QUEtiapine FUMARATE 50 MG TABLET PO SCH (22:08)
[2022-12-18] MEDS: METOPROLOL TARTRATE 25 MG TABLET (FP) PO SCH (22:09)
[2022-12-18] MEDS: ATORVASTATIN CA 80 MG TABLET (FP) PO SCH (22:09)
[2022-12-18] MEDS: MEMANTINE HCL 5 MG TABLET (UD) PO SCH (22:10)
[2022-12-18 22:59] VITALS: BMI 27.4
[2022-12-19 03:31] VITALS: RESP 18
[2022-12-19 09:09] LABS: BASO % 0.3 % (0-2.0); EOS % 7.1 % (0-4.5); HEMATOCRIT 41.9 % (32.4-45.2); HEMOGLOBIN 13.8 GM/dL (10.7-15.3); LYMPH % 41.8 % (8-40); MCH 31.3 pg (25.7-33.7); MCHC 32.8 g/dl (32.0-36.0); MEAN CELL VOLUME 95.3 fl (80-96); MEAN PLT VOLUME 7.1 fl (7.5-11.1); NEUT % 41.8 % (42.8-82.8); PLATELET COUNT 284 10^3/uL (134-434); RDW 13.9 % (11.6-15.6); WHITE BLOOD COUNT 5.5 K/mm3 (4.0-10.0)
[2022-12-19 09:30] LABS: POTASSIUM 4.2 mmol/L (3.5-5.1)
[2022-12-19 09:34] LABS: CALCIUM 8.9 mg/dL (8.5-10.1)
[2022-12-19 09:37] LABS: CREATININE 0.6 mg/dL (0.55-1.3)
[2022-12-19] MEDS: MEMANTINE HCL 5 MG TABLET (UD) PO SCH ×2 (09:59→21:19)
[2022-12-19] MEDS: CEFTRIAXONE 1 GM in DEXTROSE 5%-WATER - 50 ML IVPB SCH (09:59)
[2022-12-19] MEDS: METOPROLOL TARTRATE 25 MG TABLET (FP) PO SCH ×2 (09:59→21:19)
[2022-12-19] MEDS: SENNOSIDES 8.6MG TABLET (FP) PO SCH (09:59)
[2022-12-19] MEDS: FAMOTIDINE 20 MG TABLET PO SCH (09:59)
[2022-12-19] MEDS: ENOXAPARIN NA (PORCINE) 40 MG/0.4 ML DISP.SYRIN SQ SCH (09:59)
[2022-12-19] MEDS: SERTRALINE HCL 50 MG TABLET (FP) PO SCH (09:59)
[2022-12-19] MEDS: CLOPIDOGREL BISULFATE 75 MG TABLET (FP) PO SCH (09:59)
[2022-12-19] MEDS: DEXTROSE 5%-0.45% SALINE 1,000 ML IV SCH (17:05)
[2022-12-19] MEDS: QUEtiapine FUMARATE 50 MG TABLET PO SCH (21:19)
[2022-12-19] MEDS: ATORVASTATIN CA 80 MG TABLET (FP) PO SCH (21:19)
[2022-12-20] MEDS: MEMANTINE HCL 5 MG TABLET (UD) PO SCH ×2 (09:48→23:15)
[2022-12-20] MEDS: ENOXAPARIN NA (PORCINE) 40 MG/0.4 ML DISP.SYRIN SQ SCH (09:49)
[2022-12-20] MEDS: CEFTRIAXONE 1 GM in DEXTROSE 5%-WATER - 50 ML IVPB SCH (09:49)
[2022-12-20] MEDS: SERTRALINE HCL 50 MG TABLET (FP) PO SCH (09:49)
[2022-12-20] MEDS: SENNOSIDES 8.6MG TABLET (FP) PO SCH (09:49)
[2022-12-20] MEDS: CLOPIDOGREL BISULFATE 75 MG TABLET (FP) PO SCH (09:49)
[2022-12-20] MEDS: METOPROLOL TARTRATE 25 MG TABLET (FP) PO SCH ×2 (09:49→23:15)
[2022-12-20] MEDS: FAMOTIDINE 20 MG TABLET PO SCH (09:49)
[2022-12-20] MEDS: DEXTROSE 5%-0.45% SALINE 1,000 ML IV SCH (18:37)
[2022-12-20] MEDS: ATORVASTATIN CA 80 MG TABLET (FP) PO SCH (23:15)
[2022-12-20] MEDS: QUEtiapine FUMARATE 50 MG TABLET PO SCH (23:15)
[2022-12-21 09:18] LABS: BASO % 0.4 % (0-2.0); EOS % 8.8 % (0-4.5); HEMATOCRIT 40.3 % (32.4-45.2); HEMOGLOBIN 13.9 GM/dL (10.7-15.3); LYMPH % 33.8 % (8-40); MCH 32.2 pg (25.7-33.7); MCHC 34.6 g/dl (32.0-36.0); MEAN CELL VOLUME 93.1 fl (80-96); MEAN PLT VOLUME 7.3 fl (7.5-11.1); PLATELET COUNT 260 10^3/uL (134-434); RBC 4.32 M/mm3 (3.60-5.2); RDW 13.9 % (11.6-15.6); WHITE BLOOD COUNT 5.4 K/mm3 (4.0-10.0)
[2022-12-21 09:36] LABS: POTASSIUM 4.1 mmol/L (3.5-5.1)
[2022-12-21 09:40] LABS: CALCIUM 8.4 mg/dL (8.5-10.1)
[2022-12-21 09:41] LABS: ALBUMIN 3.1 g/dl (3.4-5.0); BLOOD UREA NITROGEN 6.6 mg/dL (7-18)
[2022-12-21 09:44] LABS: CREATININE 0.6 mg/dL (0.55-1.3)
[2022-12-21 09:46] LABS: BILIRUBIN,TOTAL 0.8 mg/dL (0.2-1); TOT PROT 6.4 g/dl (6.4-8.2)
[2022-12-21] MEDS: SENNOSIDES 8.6MG TABLET (FP) PO SCH (10:18)
[2022-12-21] MEDS: METOPROLOL TARTRATE 25 MG TABLET (FP) PO SCH ×2 (10:18→23:06)
[2022-12-21] MEDS: SERTRALINE HCL 50 MG TABLET (FP) PO SCH (10:18)
[2022-12-21] MEDS: CLOPIDOGREL BISULFATE 75 MG TABLET (FP) PO SCH (10:18)
[2022-12-21] MEDS: MEMANTINE HCL 5 MG TABLET (UD) PO SCH ×2 (10:18→23:06)
[2022-12-21] MEDS: CEFTRIAXONE 1 GM in DEXTROSE 5%-WATER - 50 ML IVPB SCH (10:18)
[2022-12-21] MEDS: ENOXAPARIN NA (PORCINE) 40 MG/0.4 ML DISP.SYRIN SQ SCH (10:18)
[2022-12-21] MEDS: FAMOTIDINE 20 MG TABLET PO SCH (10:18)
[2022-12-21] MEDS: DEXTROSE 5%-0.45% SALINE 1,000 ML IV SCH (17:52)
[2022-12-21] MEDS: QUEtiapine FUMARATE 50 MG TABLET PO SCH (23:06)
[2022-12-21] MEDS: ATORVASTATIN CA 80 MG TABLET (FP) PO SCH (23:06)
[2022-12-22] MEDS: SENNOSIDES 8.6MG TABLET (FP) PO SCH (11:02)
[2022-12-22] MEDS: SERTRALINE HCL 50 MG TABLET (FP) PO SCH (11:02)
[2022-12-22] MEDS: FAMOTIDINE 20 MG TABLET PO SCH (11:02)
[2022-12-22] MEDS: ENOXAPARIN NA (PORCINE) 40 MG/0.4 ML DISP.SYRIN SQ SCH (11:02)
[2022-12-22] MEDS: MEMANTINE HCL 5 MG TABLET (UD) PO SCH ×2 (11:02→21:47)
[2022-12-22] MEDS: METOPROLOL TARTRATE 25 MG TABLET (FP) PO SCH ×2 (11:02→21:47)
[2022-12-22] MEDS: CEFTRIAXONE 1 GM in DEXTROSE 5%-WATER - 50 ML IVPB SCH (11:02)
[2022-12-22] MEDS: CLOPIDOGREL BISULFATE 75 MG TABLET (FP) PO SCH (11:03)
[2022-12-22] MEDS ORDERED: FLU VACCINE (FLULAVAL) PF 60 MCG/0.5 ML SYRINGE 2023-2024 IM ONE (17:30)
[2022-12-22] MEDS: QUEtiapine FUMARATE 50 MG TABLET PO SCH (21:47)
[2022-12-22] MEDS: ATORVASTATIN CA 80 MG TABLET (FP) PO SCH (21:47)
[2022-12-23] MEDS: FAMOTIDINE 20 MG TABLET PO SCH (10:09)
[2022-12-23] MEDS: CEFTRIAXONE 1 GM in DEXTROSE 5%-WATER - 50 ML IVPB SCH (10:09)
[2022-12-23] MEDS: SERTRALINE HCL 50 MG TABLET (FP) PO SCH (10:09)
[2022-12-23] MEDS: ENOXAPARIN NA (PORCINE) 40 MG/0.4 ML DISP.SYRIN SQ SCH (10:09)
[2022-12-23] MEDS: CLOPIDOGREL BISULFATE 75 MG TABLET (FP) PO SCH (10:09)
[2022-12-23] MEDS: SENNOSIDES 8.6MG TABLET (FP) PO SCH (10:09)
[2022-12-23] MEDS: METOPROLOL TARTRATE 25 MG TABLET (FP) PO SCH (10:09)
[2022-12-23] MEDS: MEMANTINE HCL 5 MG TABLET (UD) PO SCH (10:09)
[2022-12-23 10:53] VITALS: BP 146/66; PULSE 63; TEMP 98.3
== END 2022-12-23 11:29 | disposition home health service (06) | DRG 690 ==
LOC: JER 13:46 → JERBED 16:57 → J6S 19:53
PROVIDERS: ADMIT Internal Medicine; ATTEND Family Medicine
DX: N39.0 Urinary tract infection, site not specified (principal); I10 Essential (primary) hypertension; F03.90 Unspecified dementia, unspecified severity, without behavioral disturbance, psychotic disturbance, mood disturbance, and anxiety; I25.10 Atherosclerotic heart disease of native coronary artery without angina pectoris; I48.91 Unspecified atrial fibrillation; E86.0 Dehydration; F20.9 Schizophrenia, unspecified; E78.5 Hyperlipidemia, unspecified; Z88.0 Allergy status to penicillin; Z95.5 Presence of coronary angioplasty implant and graft
CPT/HCPCS: 0241U-QW; 36415; 70450-TC; 71045-TC-FY; 80048; 80053; 81003; 82962; 84484; 85025; 85610; 85730; 87086; 87186; 90686; 93005; 93010; 97161-GP; 99285-25; G0008

== ENCOUNTER 2023-02-16 07:36 | Observation (INO) | payer OTHER ==
[2023-02-16 09:14] LABS: VENOUS BASE EXCESS -1.7 mmol/L (-2-2); VENOUS O2 SATURATION 55.9 % (70-80); VENOUS PCO2 46.6 mmHg (38-52); VENOUS PH 7.339 (7.310-7.410)
[2023-02-16 09:15] LABS: BASO % 0.5 % (0-2.0); EOS % 9.9 % (0-4.5); HEMATOCRIT 43.2 % (32.4-45.2); HEMOGLOBIN 14.5 GM/dL (10.7-15.3); LYMPH % 23.1 % (8-40); MCH 31.9 pg (25.7-33.7); MCHC 33.5 g/dl (32.0-36.0); MEAN CELL VOLUME 95.1 fl (80-96); MEAN PLT VOLUME 7.6 fl (7.5-11.1); MONO % 8.1 % (3.8-10.2); NEUT % 58.4 % (42.8-82.8); PLATELET COUNT 312 10^3/uL (134-434); RBC 4.54 M/mm3 (3.60-5.2); RDW 14.5 % (11.6-15.6); WHITE BLOOD COUNT 8.8 K/mm3 (4.0-10.0)
[2023-02-16 09:26] LABS: EPI CELLS 0 /uL (0-25.1); HYALINE CASTS 2 /uL (0-3.1); PH,URINE 6.5 (5.0-8.0); URINE APPEARANCE CLOUDY; URINE BACTERIA >9,000 /uL (0-1359); URINE BILIRUBIN NEGATIVE (NEGATIVE); URINE COLOR YELLOW; URINE GLUCOSE (UA) NEGATIVE (NEGATIVE); URINE KETONE NEGATIVE (NEGATIVE); URINE LEUK ESTERASE 3+ (NEGATIVE); URINE NITRITE POSITIVE (NEGATIVE); URINE PROTEIN NEGATIVE (NEGATIVE); URINE RBC 28 /uL (0-23.9); URINE WBC 785 /uL (0-25.8)
[2023-02-16 09:26] LABS: INR 1.07 (0.83-1.09); PROTHROMBIN TIME (PATIENT) 12.4 SEC (9.7-13.0)
[2023-02-16 09:28] LABS: ACTIVATED PTT 29.6 SECONDS (25.2-36.5)
[2023-02-16 09:40] LABS: POTASSIUM 5.2 mmol/L (3.5-5.1)
[2023-02-16 09:42] LABS: ALBUMIN 3.2 g/dl (3.4-5.0); CALCIUM 8.7 mg/dL (8.5-10.1)
[2023-02-16 09:45] LABS: CREATININE 0.6 mg/dL (0.55-1.3)
[2023-02-16 09:48] LABS: BILIRUBIN,TOTAL 0.9 mg/dL (0.2-1); TOT PROT 6.7 g/dl (6.4-8.2)
[2023-02-16 09:50] LABS: N-TERMINAL BNP 234.4 pg/ml (5-450)
[2023-02-16] MEDS ORDERED: MEROPENEM 1 GM in DEXTROSE 5%-WATER 100 ML IVPB ONE (10:08)
[2023-02-16] MEDS ORDERED: MEROPENEM 1 GM VIAL (RESTRICTED TO ID) IVPB ONE ×2 (11:34)
[2023-02-16 15:17] VITALS: BMI 28.9
[2023-02-16] MEDS: ATORVASTATIN CA 80 MG TABLET (FP) PO SCH (21:35)
[2023-02-16] MEDS: QUEtiapine FUMARATE 50 MG TABLET PO SCH (21:36)
[2023-02-16] MEDS: MEMANTINE HCL 5 MG TABLET (UD) PO SCH (21:36)
[2023-02-16] MEDS: METOPROLOL TARTRATE 25 MG TABLET (FP) PO SCH (21:36)
[2023-02-17] MEDS ORDERED: SODIUM CHLORIDE 500 ML IV STA (03:28)
[2023-02-17 08:32] LABS: HEMATOCRIT 39.5 % (32.4-45.2); HEMOGLOBIN 13.6 GM/dL (10.7-15.3); MCH 32.5 pg (25.7-33.7); MCHC 34.5 g/dl (32.0-36.0); MEAN CELL VOLUME 94.3 fl (80-96); MEAN PLT VOLUME 7.1 fl (7.5-11.1); PLATELET COUNT 273 10^3/uL (134-434); RBC 4.19 M/mm3 (3.60-5.2); RDW 14.4 % (11.6-15.6)
[2023-02-17 08:53] LABS: POTASSIUM 4.1 mmol/L (3.5-5.1)
[2023-02-17 08:56] LABS: CALCIUM 8.7 mg/dL (8.5-10.1)
[2023-02-17 08:57] LABS: BLOOD UREA NITROGEN 9.8 mg/dL (7-18)
[2023-02-17 08:58] LABS: CREATININE 0.6 mg/dL (0.55-1.3)
[2023-02-17] MEDS: METOPROLOL TARTRATE 25 MG TABLET (FP) PO SCH ×2 (10:19→21:25)
[2023-02-17] MEDS: MEMANTINE HCL 5 MG TABLET (UD) PO SCH ×2 (10:19→21:25)
[2023-02-17] MEDS: SENNOSIDES 8.6MG TABLET (FP) PO SCH (10:19)
[2023-02-17] MEDS: CLOPIDOGREL BISULFATE 75 MG TABLET (FP) PO SCH (10:19)
[2023-02-17] MEDS: SERTRALINE HCL 50 MG TABLET (FP) PO SCH (10:19)
[2023-02-17] MEDS: DEXTROSE 5%-0.45% SALINE 1,000 ML IV SCH (10:19)
[2023-02-17] MEDS: FAMOTIDINE 20 MG TABLET PO SCH (10:19)
[2023-02-17] MEDS: QUEtiapine FUMARATE 50 MG TABLET PO SCH (21:25)
[2023-02-17] MEDS: ATORVASTATIN CA 80 MG TABLET (FP) PO SCH ×2 (21:25→22:25)
[2023-02-18] MEDS: METOPROLOL TARTRATE 25 MG TABLET (FP) PO SCH ×2 (11:00→21:38)
[2023-02-18] MEDS: FAMOTIDINE 20 MG TABLET PO SCH (11:00)
[2023-02-18] MEDS: SERTRALINE HCL 50 MG TABLET (FP) PO SCH (11:00)
[2023-02-18] MEDS: SENNOSIDES 8.6MG TABLET (FP) PO SCH (11:00)
[2023-02-18] MEDS: CLOPIDOGREL BISULFATE 75 MG TABLET (FP) PO SCH (11:00)
[2023-02-18] MEDS: MEMANTINE HCL 5 MG TABLET (UD) PO SCH ×2 (11:00→21:39)
[2023-02-18] MEDS: DEXTROSE 5%-0.45% SALINE 1,000 ML IV SCH (11:20)
[2023-02-18] MEDS: ATORVASTATIN CA 80 MG TABLET (FP) PO SCH (21:38)
[2023-02-18] MEDS: QUEtiapine FUMARATE 50 MG TABLET PO SCH (21:39)
[2023-02-18] MEDS: NITROFURANTOIN MONOHYD/M-CRYST 100 MG CAPSULE PO SCH (21:40)
[2023-02-19] MEDS: DEXTROSE 5%-0.45% SALINE 1,000 ML IV SCH (08:38)
[2023-02-19] MEDS: NITROFURANTOIN MONOHYD/M-CRYST 100 MG CAPSULE PO SCH (09:38)
[2023-02-19] MEDS: METOPROLOL TARTRATE 25 MG TABLET (FP) PO SCH (09:38)
[2023-02-19] MEDS: FAMOTIDINE 20 MG TABLET PO SCH (09:38)
[2023-02-19] MEDS: SERTRALINE HCL 50 MG TABLET (FP) PO SCH (09:38)
[2023-02-19] MEDS: SENNOSIDES 8.6MG TABLET (FP) PO SCH (09:38)
[2023-02-19] MEDS: CLOPIDOGREL BISULFATE 75 MG TABLET (FP) PO SCH (09:38)
[2023-02-19] MEDS: MEMANTINE HCL 5 MG TABLET (UD) PO SCH (09:39)
[2023-02-19 12:16] VITALS: BP 126/75; PULSE 75; RESP 18; TEMP 97.8
== END 2023-02-19 10:24 | disposition home or self-care (01) ==
LOC: JER 07:36 → JERBED 10:04 → INTOOBSV 10:04 → UNDOADMOB 10:04 → JERBED 10:36 → J7W 14:38
PROVIDERS: ADMIT Internal Medicine; ATTEND Internal Medicine
PROC: 3E0337Z Introduction of Electrolytic and Water Balance Substance into Peripheral Vein, Percutaneous Approach (ICD-10-PCS; principal; 2023-02-16)
PROC: 3E03329 Introduction of Other Anti-infective into Peripheral Vein, Percutaneous Approach (ICD-10-PCS; 2023-02-16)
DX: N39.0 Urinary tract infection, site not specified (principal); I48.91 Unspecified atrial fibrillation; F41.8 Other specified anxiety disorders; R41.82 Altered mental status, unspecified; G30.1 Alzheimer's disease with late onset; F02.80 Dementia in other diseases classified elsewhere, unspecified severity, without behavioral disturbance, psychotic disturbance, mood disturbance, and anxiety; R06.02 Shortness of breath; R05.9 Cough, unspecified; E78.5 Hyperlipidemia, unspecified; Z95.5 Presence of coronary angioplasty implant and graft; Z85.43 Personal history of malignant neoplasm of ovary; F25.9 Schizoaffective disorder, unspecified; R09.89 Other specified symptoms and signs involving the circulatory and respiratory systems
CPT/HCPCS: 0241U-QW; 36415; 71045-TC-FY; 80048; 80053; 81003; 82803; 83735; 83880; 84484; 85025; 85027; 85610; 85730; 87086; 87186; 93005; 93010; 96361; 96365; 99285-25; G0378

== ENCOUNTER 2023-04-09 13:24 | Observation (INO) | payer OTHER ==
[2023-04-09 15:05] LABS: HEMATOCRIT 41.5 % (32.4-45.2); HEMOGLOBIN 14.1 GM/dL (10.7-15.3); MCH 32.2 pg (25.7-33.7); MEAN CELL VOLUME 94.7 fl (80-96); MEAN PLT VOLUME 7.8 fl (7.5-11.1); PLATELET COUNT 240 10^3/uL (134-434); RBC 4.38 M/mm3 (3.60-5.2); RDW 14.7 % (11.6-15.6)
[2023-04-09 15:09] LABS: INR 1.18 (0.83-1.09); PROTHROMBIN TIME (PATIENT) 13.7 SEC (9.7-13.0)
[2023-04-09 15:12] LABS: ACTIVATED PTT 27.9 SECONDS (25.2-36.5)
[2023-04-09 15:33] LABS: POTASSIUM 5.8 mmol/L (3.5-5.1)
[2023-04-09 15:35] LABS: CALCIUM 8.8 mg/dL (8.5-10.1)
[2023-04-09 15:38] LABS: CREATININE 0.7 mg/dL (0.55-1.3)
[2023-04-09 15:40] LABS: BILIRUBIN,TOTAL 1.4 mg/dL (0.2-1); TOT PROT 7.1 g/dl (6.4-8.2)
[2023-04-09 16:03] LABS: EPI CELLS 1 /uL (0-25.1); HYALINE CASTS 1 /uL (0-3.1); PH,URINE 6.5 (5.0-8.0); URINE APPEARANCE CLOUDY; URINE BACTERIA >9,000 /uL (0-1359); URINE BILIRUBIN NEGATIVE (NEGATIVE); URINE COLOR DK YELLOW; URINE GLUCOSE (UA) NEGATIVE (NEGATIVE); URINE KETONE TRACE (NEGATIVE); URINE LEUK ESTERASE 3+ (NEGATIVE); URINE NITRITE POSITIVE (NEGATIVE); URINE PROTEIN TRACE (NEGATIVE); URINE RBC 42 /uL (0-23.9); URINE WBC 1176 /uL (0-25.8)
[2023-04-09] MEDS: LACTATED RINGERS SOLUTION 1000 ML INFUS.BAG IV ONE (16:12)
[2023-04-09] MEDS ORDERED: CEFTRIAXONE 1 GM/50 ML BAG ONE (16:31)
[2023-04-09 16:41] LABS: ANISOCYTOSIS 0; HELMET CELLS 0; HOWELL-JOLLY BODIES 0; MACROCYTOSIS 0; OVALOCYTE 0; ROULEAU 0; SICKELED CELLS 0; TARGET CELLS 0; TEAR DROP CELLS 0; TOXIC GRANULATION 0
[2023-04-09] MEDS ORDERED: GENTAMICIN INJECTION 300 MG in DEXTROSE 5%-WATER - 250 ML IVPB ONE (16:54)
[2023-04-09] MEDS ORDERED: GENTAMICIN INJECTION 300 MG in SODIUM CHLORIDE 100 ML IVPB ONE (17:18)
[2023-04-09 17:21] LABS: POTASSIUM 4.2 mmol/L (3.5-5.1)
[2023-04-09 17:23] LABS: CALCIUM 8.5 mg/dL (8.5-10.1)
[2023-04-09 17:24] LABS: BLOOD UREA NITROGEN 9.2 mg/dL (7-18)
[2023-04-09 17:27] LABS: CREATININE 0.6 mg/dL (0.55-1.3)
[2023-04-09] MEDS: GENTAMICIN INJECTION 300 MG in SODIUM CHLORIDE 100 ML IVPB ONE (19:30)
[2023-04-10] MEDS ORDERED: ACETAMINOPHEN 325 MG TABLET (FP) PO PRN (00:43)
[2023-04-10] MEDS ORDERED: ACETAMINOPHEN INJECTION 100 ML IVPB ONE (02:08)
[2023-04-10] MEDS: ACETAMINOPHEN 1000 MG/100 ML BAG IVPB ONE (02:15)
[2023-04-10 06:26] LABS: BASO % 0.2 % (0-2.0); EOS % 1.2 % (0-4.5); HEMATOCRIT 37.3 % (32.4-45.2); HEMOGLOBIN 12.6 GM/dL (10.7-15.3); LYMPH % 20.6 % (8-40); MCH 32.1 pg (25.7-33.7); MCHC 33.7 g/dl (32.0-36.0); MEAN CELL VOLUME 95.1 fl (80-96); MEAN PLT VOLUME 7.5 fl (7.5-11.1); MONO % 10.9 % (3.8-10.2); NEUT % 67.1 % (42.8-82.8); PLATELET COUNT 214 10^3/uL (134-434); RBC 3.93 M/mm3 (3.60-5.2); RDW 14.2 % (11.6-15.6); WHITE BLOOD COUNT 9.3 K/mm3 (4.0-10.0)
[2023-04-10 06:45] LABS: CALCIUM 8.4 mg/dL (8.5-10.1)
[2023-04-10 06:46] LABS: BLOOD UREA NITROGEN 7.5 mg/dL (7-18)
[2023-04-10 06:49] LABS: CREATININE 0.5 mg/dL (0.55-1.3)
[2023-04-10] MEDS ORDERED: MEROPENEM 1 GM VIAL (RESTRICTED TO ID) IVPB ONE ×2 (10:51→18:00)
[2023-04-10] MEDS: MEMANTINE HCL 5 MG TABLET (UD) PO SCH (11:09)
[2023-04-10] MEDS: FAMOTIDINE 20 MG TABLET PO SCH (11:09)
[2023-04-10] MEDS: MEROPENEM 1 GM in DEXTROSE 5%-WATER 100 ML IVPB SCH (11:09)
[2023-04-10] MEDS: METOPROLOL TARTRATE 25 MG TABLET (FP) PO SCH (11:09)
[2023-04-10] MEDS: CLOPIDOGREL BISULFATE 75 MG TABLET (FP) PO SCH (11:10)
[2023-04-10] MEDS: ATORVASTATIN CA 80 MG TABLET (FP) PO SCH (22:49)
[2023-04-10] MEDS: SENNOSIDES 8.6MG TABLET (FP) PO SCH (22:49)
[2023-04-11 02:03] VITALS: BMI 23.8
[2023-04-11 08:18] LABS: HEMOGLOBIN 13.3 GM/dL (10.7-15.3); MCH 32.2 pg (25.7-33.7); MCHC 34.1 g/dl (32.0-36.0); MEAN CELL VOLUME 94.4 fl (80-96); MEAN PLT VOLUME 7.7 fl (7.5-11.1); PLATELET COUNT 252 10^3/uL (134-434); RBC 4.13 M/mm3 (3.60-5.2); RDW 14.3 % (11.6-15.6); WHITE BLOOD COUNT 8.8 K/mm3 (4.0-10.0)
[2023-04-11 09:10] LABS: BLOOD UREA NITROGEN 7.4 mg/dL (7-18)
[2023-04-11 09:13] LABS: CREATININE 0.5 mg/dL (0.55-1.3)
[2023-04-11 09:37] LABS: CALCIUM 9.7 mg/dL (8.5-10.1)
[2023-04-11] MEDS: MEROPENEM 1 GM in DEXTROSE 5%-WATER 100 ML IVPB SCH ×2 (16:30→18:48)
[2023-04-13 09:37] LABS: HEMATOCRIT 40.3 % (32.4-45.2); HEMOGLOBIN 14.2 GM/dL (10.7-15.3); MCH 32.9 pg (25.7-33.7); MCHC 35.1 g/dl (32.0-36.0); MEAN CELL VOLUME 93.6 fl (80-96); MEAN PLT VOLUME 7.1 fl (7.5-11.1); PLATELET COUNT 309 10^3/uL (134-434); RBC 4.31 M/mm3 (3.60-5.2); RDW 14.4 % (11.6-15.6); WHITE BLOOD COUNT 7.2 K/mm3 (4.0-10.0)
[2023-04-13 09:55] LABS: POTASSIUM 4.1 mmol/L (3.5-5.1)
[2023-04-13 09:59] LABS: BLOOD UREA NITROGEN 8.2 mg/dL (7-18)
[2023-04-13 10:01] LABS: CREATININE 0.5 mg/dL (0.55-1.3)
[2023-04-13 10:03] LABS: BILIRUBIN,TOTAL 0.8 mg/dL (0.2-1); TOT PROT 6.6 g/dl (6.4-8.2)
[2023-04-13 16:18] VITALS: RESP 20
[2023-04-14 12:01] VITALS: BP 110/77; PULSE 87; TEMP 98.2
== END 2023-04-14 12:04 | disposition home health service (06) ==
LOC: JER 13:24 → JERBED 16:48 → J8W 04-10 19:50
PROVIDERS: ADMIT Internal Medicine; ATTEND Family Medicine
PROC: 3E033NZ Introduction of Analgesics, Hypnotics, Sedatives into Peripheral Vein, Percutaneous Approach (ICD-10-PCS; principal; 2023-04-09)
PROC: 3E03329 Introduction of Other Anti-infective into Peripheral Vein, Percutaneous Approach (ICD-10-PCS; 2023-04-09)
PROC: 3E0337Z Introduction of Electrolytic and Water Balance Substance into Peripheral Vein, Percutaneous Approach (ICD-10-PCS; 2023-04-09)
DX: N39.0 Urinary tract infection, site not specified (principal); G93.41 Metabolic encephalopathy; B96.20 Unspecified Escherichia coli [E. coli] as the cause of diseases classified elsewhere; F03.90 Unspecified dementia, unspecified severity, without behavioral disturbance, psychotic disturbance, mood disturbance, and anxiety; I48.91 Unspecified atrial fibrillation; I25.10 Atherosclerotic heart disease of native coronary artery without angina pectoris; Z71.89 Other specified counseling; I11.0 Hypertensive heart disease with heart failure; Z86.711 Personal history of pulmonary embolism; Z79.01 Long term (current) use of anticoagulants; E78.5 Hyperlipidemia, unspecified; Z51.5 Encounter for palliative care; Z86.718 Personal history of other venous thrombosis and embolism; Z85.43 Personal history of malignant neoplasm of ovary; F25.9 Schizoaffective disorder, unspecified; Z90.49 Acquired absence of other specified parts of digestive tract; Z95.5 Presence of coronary angioplasty implant and graft; Z88.0 Allergy status to penicillin; R41.82 Altered mental status, unspecified
CPT/HCPCS: 0241U-QW; 36415; 71045-TC-FY; 80048; 80053; 81003; 83735; 84443; 84484; 85025; 85027; 85610; 85730; 87040; 87086; 87186; 93005; 93010; 96365; 96367; 96375; 97116-GP; 97161-GP; 99285-25; G0378; J0131

== ENCOUNTER 2023-06-28 18:31 | Inpatient (IN) | payer OTHER ==
[2023-06-28 18:54] VITALS: BMI 30.2
[2023-06-28] MEDS ORDERED: ACETAMINOPHEN INJECTION 100 ML IVPB ONE (19:28)
[2023-06-28] MEDS ORDERED: ONDANSETRON 4 MG/2 ML VIAL ONE (19:28)
[2023-06-28 20:14] LABS: EPI CELLS 7 /uL (0-25.1); HYALINE CASTS 0 /uL (0-3.1); URINE APPEARANCE CLOUDY; URINE BACTERIA >9,000 /uL (0-1359); URINE BILIRUBIN NEGATIVE (NEGATIVE); URINE COLOR YELLOW; URINE GLUCOSE (UA) NEGATIVE (NEGATIVE); URINE KETONE NEGATIVE (NEGATIVE); URINE LEUK ESTERASE 3+ (NEGATIVE); URINE NITRITE POSITIVE (NEGATIVE); URINE PROTEIN NEGATIVE (NEGATIVE); URINE RBC 11 /uL (0-23.9); URINE WBC 51 /uL (0-25.8)
[2023-06-28 20:27] LABS: BASO % 0.4 % (0-2.0); EOS % 3.9 % (0-4.5); HEMATOCRIT 44.1 % (32.4-45.2); HEMOGLOBIN 14.9 GM/dL (10.7-15.3); LYMPH % 23.6 % (8-40); MCH 32.4 pg (25.7-33.7); MCHC 33.8 g/dl (32.0-36.0); MEAN CELL VOLUME 96.1 fl (80-96); MEAN PLT VOLUME 6.9 fl (7.5-11.1); MONO % 9.6 % (3.8-10.2); NEUT % 62.5 % (42.8-82.8); PLATELET COUNT 267 10^3/uL (134-434); RBC 4.59 M/mm3 (3.60-5.2); RDW 14.9 % (11.6-15.6); WHITE BLOOD COUNT 7.5 K/mm3 (4.0-10.0)
[2023-06-28 20:46] LABS: POTASSIUM 4.3 mmol/L (3.5-5.1)
[2023-06-28 20:48] LABS: ALBUMIN 3.2 g/dl (3.4-5.0)
[2023-06-28 20:51] LABS: CREATININE 0.6 mg/dL (0.55-1.3)
[2023-06-28 20:53] LABS: BILIRUBIN,TOTAL 0.7 mg/dL (0.2-1); TOT PROT 6.6 g/dl (6.4-8.2)
[2023-06-28] MEDS: SODIUM CHLORIDE 0.9% 500 ML INFUS.BAG IV ONE (21:12)
[2023-06-28] MEDS: ACETAMINOPHEN 1000 MG/100 ML BAG IVPB ONE (21:12)
[2023-06-28] MEDS: ONDANSETRON 4 MG/2 ML VIAL IVPUSH ONE (21:12)
[2023-06-28] MEDS ORDERED: MEROPENEM 1 GM VIAL (RESTRICTED TO ID) IVPB ONE (21:49)
[2023-06-28] MEDS: MEROPENEM 1 GM in DEXTROSE 5%-WATER 100 ML IVPB ONE (22:01)
[2023-06-29 06:14] LABS: BASO % 0.7 % (0-2.0); EOS % 5.6 % (0-4.5); HEMATOCRIT 42.8 % (32.4-45.2); HEMOGLOBIN 14.3 GM/dL (10.7-15.3); MCHC 33.3 g/dl (32.0-36.0); MEAN CELL VOLUME 96.1 fl (80-96); MONO % 9.4 % (3.8-10.2); NEUT % 56.3 % (42.8-82.8); PLATELET COUNT 238 10^3/uL (134-434); RBC 4.46 M/mm3 (3.60-5.2); RDW 14.3 % (11.6-15.6); WHITE BLOOD COUNT 7.4 K/mm3 (4.0-10.0)
[2023-06-29 07:51] LABS: CALCIUM 9.1 mg/dL (8.5-10.1); CREATININE 0.5 mg/dL (0.55-1.3)
[2023-06-29 08:06] LABS: POTASSIUM 4.4 mmol/L (3.5-5.1)
[2023-06-29] MEDS ORDERED: FAMOTIDINE 20 MG TABLET ONE (09:51)
[2023-06-29] MEDS ORDERED: METOPROLOL TARTRATE 25 MG TABLET (FP) ONE (09:51)
[2023-06-29] MEDS ORDERED: CLOPIDOGREL BISULFATE 75 MG TABLET (FP) ONE (09:52)
[2023-06-29] MEDS ORDERED: MEROPENEM 1 GM VIAL (RESTRICTED TO ID) IVPB ONE (09:52)
[2023-06-29] MEDS ORDERED: SENNOSIDES 8.6MG TABLET (FP) PO ONE (09:52)
[2023-06-29] MEDS: MEROPENEM 1 GM in DEXTROSE 5%-WATER 100 ML IVPB SCH (10:19)
[2023-06-29] MEDS: CLOPIDOGREL BISULFATE 75 MG TABLET (FP) PO SCH (10:19)
[2023-06-29] MEDS: SENNOSIDES 8.6MG TABLET (FP) PO SCH (10:19)
[2023-06-29] MEDS: FAMOTIDINE 40 MG TABLET PO SCH (10:19)
[2023-06-29] MEDS: METOPROLOL TARTRATE 25 MG TABLET (FP) PO SCH (10:19)
[2023-06-29] MEDS: MEMANTINE HCL 5 MG TABLET (UD) PO SCH (12:09)
[2023-06-29] MEDS: ATORVASTATIN CA 80 MG TABLET (FP) PO SCH (21:23)
[2023-06-30] MEDS: POLYETHYLENE GLYCOL (HEALTHYLAX) 3350 17 GM PACKET PO SCH (11:31)
[2023-06-30] MEDS: MEROPENEM 1 GM in DEXTROSE 5%-WATER 100 ML IVPB SCH (15:00)
[2023-07-01] MEDS ORDERED: MEROPENEM 1 GM VIAL (RESTRICTED TO ID) IVPB ONE (17:07)
[2023-07-01 22:18] VITALS: BP 128/70; PULSE 82; RESP 17; TEMP 98.1
== END 2023-07-01 22:20 | disposition home or self-care (01) | DRG 690 ==
LOC: JER 18:31 → JERBED 21:18 → J6S 06-29 11:11
PROVIDERS: ADMIT Internal Medicine; ATTEND Family Medicine
DX: N39.0 Urinary tract infection, site not specified (principal); K56.41 Fecal impaction; F03.90 Unspecified dementia, unspecified severity, without behavioral disturbance, psychotic disturbance, mood disturbance, and anxiety; I10 Essential (primary) hypertension; F20.9 Schizophrenia, unspecified; I25.10 Atherosclerotic heart disease of native coronary artery without angina pectoris; E78.5 Hyperlipidemia, unspecified; I48.91 Unspecified atrial fibrillation; F41.8 Other specified anxiety disorders; K52.9 Noninfective gastroenteritis and colitis, unspecified; Z95.5 Presence of coronary angioplasty implant and graft
CPT/HCPCS: 0241U-QW; 36415; 74019-TC-FY; 80048; 80053; 81003; 83605; 83690; 84484; 85025; 87086; 87186; 93005; 93010; 97161-GP; 99285-25; J0131

== ENCOUNTER 2023-10-27 12:17 | Emergency (ER) | payer OTHER ==
[2023-10-27 12:47] VITALS: TEMP 99; BMI 30.2
[2023-10-27 13:29] LABS: BASO % 0.7 % (0-2.0); EOS % 5.7 % (0-4.5); HEMATOCRIT 45.7 % (32.4-45.2); HEMOGLOBIN 15.9 GM/dL (10.7-15.3); LYMPH % 35.3 % (8-40); MCH 32.6 pg (25.7-33.7); MCHC 34.7 g/dl (32.0-36.0); MEAN CELL VOLUME 93.9 fl (80-96); MEAN PLT VOLUME 6.9 fl (7.5-11.1); MONO % 8.7 % (3.8-10.2); NEUT % 49.6 % (42.8-82.8); PLATELET COUNT 379 10^3/uL (134-434); RBC 4.87 M/mm3 (3.60-5.2); RDW 14.7 % (11.6-15.6); WHITE BLOOD COUNT 6.7 K/mm3 (4.0-10.0)
[2023-10-27 13:51] LABS: CHLORIDE 101 mmol/L (98-107); SODIUM 134 mmol/L (136-145)
[2023-10-27 13:53] LABS: CALCIUM 9.4 mg/dL (8.5-10.1); POTASSIUM 6.3 mmol/L (3.5-5.1)
[2023-10-27 13:54] LABS: ALBUMIN 3.1 g/dl (3.4-5.0); ANION GAP 6 mmol/L (4-13); BLOOD UREA NITROGEN 8.4 mg/dL (7-18); CO2 26 mmol/L (21-32); GLUCOSE,RANDOM 90 mg/dL (74-106)
[2023-10-27 13:56] LABS: CREATININE 0.6 mg/dL (0.55-1.3); SGOT/AST 55 U/L (15-37); SGPT/ALT 28 U/L (13-61)
[2023-10-27 13:57] LABS: BILIRUBIN,TOTAL 0.6 mg/dL (0.2-1)
[2023-10-27 13:58] LABS: ALK PHOS 107 U/L (45-117); TOT PROT 7.2 g/dl (6.4-8.2)
[2023-10-27 14:13] LABS: INR 1.04 (0.83-1.09); PROTHROMBIN TIME (PATIENT) 11.7 SEC (9.7-13.0)
[2023-10-27 14:16] LABS: ACTIVATED PTT 32.5 SECONDS (25.2-36.5)
[2023-10-27 14:30] LABS: EPI CELLS 1 /uL (0-25.1); HYALINE CASTS 0 /uL (0-3.1); URINE APPEARANCE CLOUDY; URINE BACTERIA >9,000 /uL (0-1359); URINE BILIRUBIN NEGATIVE (NEGATIVE); URINE COLOR YELLOW; URINE GLUCOSE (UA) NEGATIVE (NEGATIVE); URINE KETONE NEGATIVE (NEGATIVE); URINE LEUK ESTERASE 3+ (NEGATIVE); URINE NITRITE NEGATIVE (NEGATIVE); URINE PROTEIN NEGATIVE (NEGATIVE); URINE RBC 28 /uL (0-23.9); URINE UROBILINOGEN 0.2 mg/dL (0.2-1.0); URINE WBC 838 /uL (0-25.8)
[2023-10-27 14:41] LABS: CALCIUM 9.5 mg/dL (8.5-10.1); POTASSIUM 4.1 mmol/L (3.5-5.1)
[2023-10-27 14:45] LABS: CREATININE 0.5 mg/dL (0.55-1.3)
[2023-10-27 15:37] VITALS: BP 123/68; PULSE 74; RESP 22
== END 2023-10-27 16:42 | disposition home or self-care (01) ==
LOC: JER 12:17
DX: N30.00 Acute cystitis without hematuria (principal); R05.3 Chronic cough; Z20.822 Contact with and (suspected) exposure to COVID-19
CPT/HCPCS: 0241U-QW; 36415; 71045-TC-FY; 80048; 80053; 81003; 83880; 84484; 85025; 85610; 85730; 87086; 87186; 93005; 93010; 99285-25

== ENCOUNTER 2024-01-22 12:50 | Inpatient (IN) | payer OTHER ==
[2024-01-22 14:38] LABS: BASO % 0.4 % (0-2.0); EOS % 6.5 % (0-4.5); HEMATOCRIT 46.7 % (32.4-45.2); HEMOGLOBIN 15.6 GM/dL (10.7-15.3); LYMPH % 41.7 % (8-40); MCH 32.7 pg (25.7-33.7); MCHC 33.4 g/dl (32.0-36.0); MEAN CELL VOLUME 97.9 fl (80-96); MEAN PLT VOLUME 7.6 fl (7.5-11.1); MONO % 8.4 % (3.8-10.2); PLATELET COUNT 318 10^3/uL (134-434); RBC 4.77 M/mm3 (3.60-5.2); RDW 14.7 % (11.6-15.6); WHITE BLOOD COUNT 8.4 K/mm3 (4.0-10.0)
[2024-01-22 14:47] LABS: INR 0.97 (0.83-1.09)
[2024-01-22 14:50] LABS: ACTIVATED PTT 32.4 SECONDS (25.2-36.5)
[2024-01-22 14:59] LABS: ALBUMIN 3.4 g/dl (3.4-5.0); CALCIUM 9.8 mg/dL (8.5-10.1); MAGNESIUM 2.2 mg/dL (1.8-2.4)
[2024-01-22 15:03] LABS: CREATININE 0.6 mg/dL (0.55-1.3); PHOSPHOROUS 3.4 mg/dL (2.5-4.9)
[2024-01-22 15:10] LABS: EPI CELLS 4 /uL (0-25.1); HYALINE CASTS 8 /uL (0-3.1); PH,URINE 6.5 (5.0-8.0); URINE APPEARANCE Error; URINE BACTERIA >9,000 /uL (0-1359); URINE BILIRUBIN NEGATIVE (NEGATIVE); URINE COLOR YELLOW; URINE GLUCOSE (UA) NEGATIVE (NEGATIVE); URINE KETONE NEGATIVE (NEGATIVE); URINE LEUK ESTERASE 3+ (NEGATIVE); URINE NITRITE POSITIVE (NEGATIVE); URINE PROTEIN NEGATIVE (NEGATIVE); URINE RBC 87 /uL (0-23.9); URINE WBC 2876 /uL (0-25.8)
[2024-01-22] MEDS ORDERED: CEFEPIME HCL 2 GM VIAL (RESTRICTED TO ID) IVPB ONE (15:15)
[2024-01-22] MEDS: MEROPENEM 1 GM in DEXTROSE 5%-WATER 100 ML IVPB ONE (15:56)
[2024-01-22] MEDS: CEFTRIAXONE 1,000 MG in DEXTROSE 5%-WATER - 50 ML IVPB ONE (15:58)
[2024-01-22] MEDS ORDERED: ENOXAPARIN NA (PORCINE) 60 MG/0.6 ML DISP.SYRIN SQ ONE (18:09)
[2024-01-22] MEDS: LACTATED RINGERS SOLUTION 1000 ML INFUS.BAG IV ONE (19:22)
[2024-01-22] MEDS: ENOXAPARIN NA (PORCINE) 60 MG/0.6 ML DISP.SYRIN SQ ONE (19:22)
[2024-01-22] MEDS: SODIUM PHOSPHATE/NA BIPHOS 133 ML ENEMA PR ONE (19:56)
[2024-01-23] MEDS: MEROPENEM 1 GM in DEXTROSE 5%-WATER 100 ML IVPB SCH ×2 (03:42→18:41)
[2024-01-23] MEDS ORDERED: DEXTROSE 5%-WATER 100 ML IVPB ONE (04:03)
[2024-01-23] MEDS ORDERED: MEROPENEM 1 GM VIAL (RESTRICTED TO ID) IVPB ONE (04:03)
[2024-01-23 06:33] LABS: BASO % 0.4 % (0-2.0); EOS % 3.6 % (0-4.5); HEMATOCRIT 42.4 % (32.4-45.2); HEMOGLOBIN 14.1 GM/dL (10.7-15.3); LYMPH % 34.9 % (8-40); MCH 32.5 pg (25.7-33.7); MCHC 33.2 g/dl (32.0-36.0); MEAN CELL VOLUME 97.9 fl (80-96); MEAN PLT VOLUME 7.5 fl (7.5-11.1); MONO % 7.3 % (3.8-10.2); NEUT % 53.8 % (42.8-82.8); PLATELET COUNT 282 10^3/uL (134-434); RBC 4.34 M/mm3 (3.60-5.2); RDW 14.3 % (11.6-15.6); WHITE BLOOD COUNT 6.1 K/mm3 (4.0-10.0)
[2024-01-23 06:52] LABS: POTASSIUM 4.3 mmol/L (3.5-5.1)
[2024-01-23 06:55] LABS: BLOOD UREA NITROGEN 11.2 mg/dL (7-18); CALCIUM 9.2 mg/dL (8.5-10.1)
[2024-01-23 06:58] LABS: CREATININE 0.6 mg/dL (0.55-1.3)
[2024-01-23 06:59] LABS: BILIRUBIN,TOTAL 1.1 mg/dL (0.2-1)
[2024-01-23 07:00] LABS: TOT PROT 6.1 g/dl (6.4-8.2)
[2024-01-23 08:11] VITALS: BMI 23.2
[2024-01-23] MEDS: DEXTROSE 5%-0.45% SALINE 1,000 ML IV SCH (09:42)
[2024-01-23] MEDS: ENOXAPARIN NA (PORCINE) 60 MG/0.6 ML DISP.SYRIN SQ SCH (09:42)
[2024-01-23] MEDS: MEROPENEM-0.9% SODIUM CHLORIDE 1 GM/50 ML BAG IVPB SCH (16:40)
[2024-01-23] MEDS: ERTAPENEM SODIUM 0.5 GM in SODIUM CHLORIDE 50 ML IVPB SCH (22:42)
[2024-01-24] MEDS ORDERED: AMINO ACIDS 4.25%/D5W 1,000 ML IV SCH (15:45)
[2024-01-25 07:32] LABS: HEMATOCRIT 39.7 % (32.4-45.2); HEMOGLOBIN 13.6 GM/dL (10.7-15.3); MCH 33.2 pg (25.7-33.7); MCHC 34.3 g/dl (32.0-36.0); MEAN CELL VOLUME 96.9 fl (80-96); MEAN PLT VOLUME 7.4 fl (7.5-11.1); PLATELET COUNT 230 10^3/uL (134-434); RDW 14.3 % (11.6-15.6); WHITE BLOOD COUNT 4.8 K/mm3 (4.0-10.0)
[2024-01-25 07:44] LABS: CALCIUM 8.7 mg/dL (8.5-10.1)
[2024-01-25 07:45] LABS: ALBUMIN 2.8 g/dl (3.4-5.0)
[2024-01-25 07:48] LABS: CREATININE 0.5 mg/dL (0.55-1.3)
[2024-01-25 07:50] LABS: BILIRUBIN,TOTAL 1.1 mg/dL (0.2-1); TOT PROT 5.6 g/dl (6.4-8.2)
[2024-01-25] MEDS: POLYETHYLENE GLYCOL (HEALTHYLAX) 3350 17 GM PACKET PO SCH (11:06)
[2024-01-25] MEDS: SERTRALINE HCL 50 MG TABLET (FP) PO SCH (11:06)
[2024-01-25] MEDS: CLOPIDOGREL BISULFATE 75 MG TABLET (FP) PO SCH (11:06)
[2024-01-25] MEDS: METOPROLOL TARTRATE 25 MG TABLET (FP) PO SCH (11:06)
[2024-01-25] MEDS: FAMOTIDINE 20 MG TABLET PO SCH (11:08)
[2024-01-25] MEDS: CEFTRIAXONE 1 G/50 ML PREMIX 50 ML IVPB SCH (11:19)
[2024-01-25] MEDS: CEFTRIAXONE 1 GM in DEXTROSE 5%-WATER - 50 ML IVPB SCH (14:54)
[2024-01-25] MEDS: ATORVASTATIN CA 80 MG TABLET (FP) PO SCH (21:29)
[2024-01-26] MEDS: APIXABAN 5 MG TABLET PO SCH ×2 (11:02→21:09)
[2024-01-26 20:58] VITALS: RESP 16
[2024-01-27] MEDS: CEPHALEXIN MONOHYDRATE 500 MG CAPSULE (UD) PO SCH (10:21)
[2024-01-27 15:23] VITALS: BP 128/71; PULSE 63; TEMP 98.1
== END 2024-01-27 19:40 | disposition home health service (06) | DRG 64 ==
LOC: JER 12:50 → JERBED 18:05 → J4S 01-23 07:01
PROVIDERS: ADMIT Internal Medicine; ATTEND Family Medicine
DX: I63.9 Cerebral infarction, unspecified (principal); I26.99 Other pulmonary embolism without acute cor pulmonale; R53.2 Functional quadriplegia; N39.0 Urinary tract infection, site not specified; R64 Cachexia; G30.9 Alzheimer's disease, unspecified; F02.80 Dementia in other diseases classified elsewhere, unspecified severity, without behavioral disturbance, psychotic disturbance, mood disturbance, and anxiety; I25.10 Atherosclerotic heart disease of native coronary artery without angina pectoris; B96.1 Klebsiella pneumoniae [K. pneumoniae] as the cause of diseases classified elsewhere; Z95.5 Presence of coronary angioplasty implant and graft; Z68.23 Body mass index [BMI] 23.0-23.9, adult; K59.00 Constipation, unspecified; R62.7 Adult failure to thrive
CPT/HCPCS: 0241U-QW; 36415; 70450-TC; 71045-TC-FY; 74177-TC; 80053; 80061; 81003; 83036; 83735; 84100; 84443; 84484; 85025; 85027; 85610; 85730; 87086; 87186; 93005; 93010; 97161-GP; 99285-25; Q9967

== ENCOUNTER 2024-03-21 12:02 | Inpatient (IN) | payer OTHER ==
[2024-03-21 15:11] LABS: BASO % 0.6 % (0-2.0); EOS % 6.7 % (0-4.5); HEMATOCRIT 47.7 % (32.4-45.2); LYMPH % 26.2 % (8-40); MCH 32.5 pg (25.7-33.7); MCHC 33.5 g/dl (32.0-36.0); MEAN CELL VOLUME 97.2 fl (80-96); MEAN PLT VOLUME 6.9 fl (7.5-11.1); MONO % 7.3 % (3.8-10.2); NEUT % 59.2 % (42.8-82.8); PLATELET COUNT 306 10^3/uL (134-434); RBC 4.91 M/mm3 (3.60-5.2); WHITE BLOOD COUNT 8.8 K/mm3 (4.0-10.0)
[2024-03-21 15:22] LABS: CHLORIDE 106 mmol/L (98-107); SODIUM 133 mmol/L (136-145)
[2024-03-21 15:24] LABS: CALCIUM 9.3 mg/dL (8.5-10.1)
[2024-03-21 15:26] LABS: ALBUMIN 3.1 g/dl (3.4-5.0); BLOOD UREA NITROGEN 11.8 mg/dL (7-18); CO2 26 mmol/L (21-32); GLUCOSE,RANDOM 128 mg/dL (74-106)
[2024-03-21 15:27] LABS: ANION GAP 2 mmol/L (4-13); POTASSIUM 7.4 mmol/L (3.5-5.1)
[2024-03-21 15:29] LABS: BILIRUBIN,TOTAL 0.6 mg/dL (0.2-1); CREATININE 0.7 mg/dL (0.55-1.3); SGOT/AST 62 U/L (15-37); SGPT/ALT 32 U/L (13-61); TOT PROT 6.7 g/dl (6.4-8.2)
[2024-03-21 15:31] LABS: ALK PHOS 92 U/L (45-117)
[2024-03-21 17:17] LABS: URINE COLOR DK YELLOW
[2024-03-21 17:18] LABS: EPI CELLS 150.9 /uL (0-25.1); URINE APPEARANCE TURBID; URINE BILIRUBIN NEGATIVE (NEGATIVE); URINE GLUCOSE (UA) NEGATIVE (NEGATIVE); URINE KETONE NEGATIVE (NEGATIVE); URINE LEUK ESTERASE 4+ (NEGATIVE); URINE NITRITE NEGATIVE (NEGATIVE); URINE PROTEIN 100 (NEGATIVE); URINE RBC 469.7 /uL (0-23.9); URINE WBC 29305.7 /uL (0-25.8)
[2024-03-21 17:19] LABS: HYALINE CASTS 865.87 /uL (0-3.1); URINE BACTERIA 35734.8 /uL (0-1359)
[2024-03-21] MEDS ORDERED: MEROPENEM-0.9% SODIUM CHLORIDE 1 GM/50 ML BAG IVPB ONE (17:46)
[2024-03-21 18:03] LABS: POTASSIUM 4.1 mmol/L (3.5-5.1)
[2024-03-21 18:05] LABS: BLOOD UREA NITROGEN 10.6 mg/dL (7-18)
[2024-03-21 18:09] LABS: CREATININE 0.6 mg/dL (0.55-1.3)
[2024-03-21] MEDS: MEROPENEM 1 GM in DEXTROSE 5%-WATER 100 ML IVPB ONE (18:09)
[2024-03-22] MEDS ORDERED: MEROPENEM 1 GM in DEXTROSE 5%-WATER 100 ML IVPB SCH (07:00)
[2024-03-22] MEDS: MEROPENEM-0.9% SODIUM CHLORIDE 1 GM/50 ML BAG IVPB SCH (08:34)
[2024-03-22 09:30] LABS: BASO % 0.5 % (0-2.0); EOS % 8.4 % (0-4.5); HEMATOCRIT 42.8 % (32.4-45.2); HEMOGLOBIN 14.7 GM/dL (10.7-15.3); LYMPH % 32.8 % (8-40); MCH 32.8 pg (25.7-33.7); MCHC 34.4 g/dl (32.0-36.0); MEAN CELL VOLUME 95.4 fl (80-96); MEAN PLT VOLUME 6.9 fl (7.5-11.1); MONO % 8.8 % (3.8-10.2); NEUT % 49.5 % (42.8-82.8); PLATELET COUNT 286 10^3/uL (134-434); RBC 4.49 M/mm3 (3.60-5.2); RDW 13.7 % (11.6-15.6); WHITE BLOOD COUNT 7.2 K/mm3 (4.0-10.0)
[2024-03-22] MEDS: METOPROLOL TARTRATE 25 MG TABLET (FP) PO SCH (09:55)
[2024-03-22] MEDS: APIXABAN 5 MG TABLET PO SCH (09:55)
[2024-03-22] MEDS: CLOPIDOGREL BISULFATE 75 MG TABLET (FP) PO SCH (09:55)
[2024-03-22] MEDS: SERTRALINE HCL 50 MG TABLET (FP) PO SCH (09:55)
[2024-03-22 10:03] LABS: POTASSIUM 4.3 mmol/L (3.5-5.1)
[2024-03-22 10:06] LABS: BLOOD UREA NITROGEN 10.5 mg/dL (7-18); CALCIUM 9.1 mg/dL (8.5-10.1)
[2024-03-22 10:10] LABS: CREATININE 0.5 mg/dL (0.55-1.3)
[2024-03-22] MEDS: ATORVASTATIN CA 80 MG TABLET (FP) PO SCH (21:15)
[2024-03-23 10:00] LABS: HEMATOCRIT 43.1 % (32.4-45.2); HEMOGLOBIN 14.8 GM/dL (10.7-15.3); MCH 32.7 pg (25.7-33.7); MCHC 34.5 g/dl (32.0-36.0); MEAN PLT VOLUME 7.3 fl (7.5-11.1); PLATELET COUNT 283 10^3/uL (134-434); RBC 4.54 M/mm3 (3.60-5.2); RDW 13.9 % (11.6-15.6); WHITE BLOOD COUNT 7.5 K/mm3 (4.0-10.0)
[2024-03-23] MEDS ORDERED: COLLAGENASE CLOSTRIDIUM HIST. 30 GRAMS TUBE TP SCH (10:00)
[2024-03-23] MEDS: ASCORBIC ACID 500 MG TABLET (FP) PO SCH (10:05)
[2024-03-23] MEDS: ZINC SULFATE 220 MG CAPSULE (FP) PO SCH (10:05)
[2024-03-23] MEDS: ERTAPENEM SODIUM 0.5 GM in SODIUM CHLORIDE 50 ML IVPB SCH (10:05)
[2024-03-23] MEDS: MULTIVIT-MINERALS ORAL LIQUID PO SCH (10:09)
[2024-03-23 10:28] LABS: POTASSIUM 4.4 mmol/L (3.5-5.1)
[2024-03-23 10:32] LABS: CALCIUM 9.1 mg/dL (8.5-10.1)
[2024-03-23 10:33] LABS: MAGNESIUM 2.2 mg/dL (1.8-2.4)
[2024-03-23 10:35] LABS: CREATININE 0.5 mg/dL (0.55-1.3)
[2024-03-23] MEDS: BACITRACIN/POLYMYXIN B SULFATE 15 GM TUBE TP SCH (14:17)
[2024-03-24] MEDS: CEFTRIAXONE 1 G/50 ML PREMIX 50 ML IVPB SCH (10:39)
[2024-03-24] MEDS: MINERAL OIL/PET HY-PHL TOPICAL OINTMENT 454 GM JAR TP SCH (11:13)
[2024-03-24 12:45] VITALS: BMI 20.9
[2024-03-24] MEDS: BACITRACIN/POLYMYXIN B SULFATE 15 GM TUBE TP SCH (21:21)
[2024-03-25 02:42] VITALS: RESP 18
[2024-03-25 12:50] VITALS: BP 115/79; PULSE 88; TEMP 97.7
== END 2024-03-25 16:30 | disposition home health service (06) | DRG 689 ==
LOC: JER 12:02 → JERBED 18:44 → J6S 03-22 02:34
PROVIDERS: ADMIT Internal Medicine; ATTEND Family Medicine
DX: N39.0 Urinary tract infection, site not specified (principal); R53.2 Functional quadriplegia; B96.1 Klebsiella pneumoniae [K. pneumoniae] as the cause of diseases classified elsewhere; I48.91 Unspecified atrial fibrillation; F03.90 Unspecified dementia, unspecified severity, without behavioral disturbance, psychotic disturbance, mood disturbance, and anxiety; F41.8 Other specified anxiety disorders; E86.0 Dehydration; E87.5 Hyperkalemia; L89.311 Pressure ulcer of right buttock, stage 1; L89.152 Pressure ulcer of sacral region, stage 2; F20.9 Schizophrenia, unspecified; R05.9 Cough, unspecified; Z86.718 Personal history of other venous thrombosis and embolism; Z95.5 Presence of coronary angioplasty implant and graft; Z88.0 Allergy status to penicillin
CPT/HCPCS: 36415; 71045-TC-FY; 80048; 80053; 81003; 83735; 85025; 85027; 87086; 87186; 93005; 93010; 99285-25

== ENCOUNTER 2024-05-14 11:37 | Emergency (ER) | payer OTHER ==
[2024-05-14 12:11] VITALS: TEMP 98.9; BMI 20.9
[2024-05-14 13:29] LABS: BASO % 0.4 % (0-2.0); EOS % 8.5 % (0-4.5); HEMATOCRIT 43.4 % (32.4-45.2); HEMOGLOBIN 14.8 GM/dL (10.7-15.3); LYMPH % 30.2 % (8-40); MCH 32.2 pg (25.7-33.7); MEAN CELL VOLUME 94.6 fl (80-96); MONO % 9.5 % (3.8-10.2); NEUT % 51.4 % (42.8-82.8); PLATELET COUNT 269 10^3/uL (134-434); RBC 4.59 M/mm3 (3.60-5.2); RDW 14.4 % (11.6-15.6); WHITE BLOOD COUNT 7.5 K/mm3 (4.0-10.0)
[2024-05-14 14:01] LABS: PH,URINE 7.5 (5.0-8.0); URINE APPEARANCE TURBID; URINE BILIRUBIN NEGATIVE (NEGATIVE); URINE COLOR YELLOW; URINE GLUCOSE (UA) NEGATIVE (NEGATIVE); URINE KETONE NEGATIVE (NEGATIVE); URINE LEUK ESTERASE NEGATIVE (NEGATIVE); URINE NITRITE NEGATIVE (NEGATIVE); URINE PROTEIN NEGATIVE (NEGATIVE)
[2024-05-14] MEDS ORDERED: POLYETHYLENE GLYCOL (HEALTHYLAX) 3350 17 GM PACKET ONE (18:37)
[2024-05-14] MEDS: POLYETHYLENE GLYCOL (HEALTHYLAX) 3350 17 GM PACKET PO SCH (18:44)
[2024-05-14 19:46] VITALS: BP 133/78; PULSE 88; RESP 20
[2024-05-14 20:45] LABS: POTASSIUM 4.5 mmol/L (3.5-5.1)
[2024-05-14 20:46] LABS: CALCIUM 8.7 mg/dL (8.5-10.1)
[2024-05-14 20:47] LABS: ALBUMIN 3.2 g/dl (3.4-5.0); BLOOD UREA NITROGEN 13.3 mg/dL (7-18)
[2024-05-14 20:50] LABS: CREATININE 0.9 mg/dL (0.55-1.3)
[2024-05-14 20:52] LABS: BILIRUBIN,TOTAL 1.1 mg/dL (0.2-1); TOT PROT 6.2 g/dl (6.4-8.2)
== END 2024-05-14 21:11 | disposition home or self-care (01) ==
LOC: JER 11:37
DX: K59.00 Constipation, unspecified (principal); R47.01 Aphasia; R05.9 Cough, unspecified; R82.998 Other abnormal findings in urine
CPT/HCPCS: 0241U-QW; 36415; 71045-TC-FY; 74018-TC-FY; 80053; 81003; 85025; 87086; 93005; 93010; 99285-25

== ENCOUNTER 2024-07-25 12:54 | Emergency (ER) | payer OTHER ==
[2024-07-25 13:51] VITALS: RESP 16; BMI 24.5
[2024-07-25 15:42] LABS: EPI CELLS 2 /uL (0-25.1); HYALINE CASTS 4 /uL (0-3.1); URINE APPEARANCE TURBID; URINE BACTERIA >9,000 /uL (0-1359); URINE BILIRUBIN NEGATIVE (NEGATIVE); URINE COLOR YELLOW; URINE GLUCOSE (UA) NEGATIVE (NEGATIVE); URINE KETONE NEGATIVE (NEGATIVE); URINE LEUK ESTERASE 3+ (NEGATIVE); URINE NITRITE POSITIVE (NEGATIVE); URINE PROTEIN TRACE (NEGATIVE); URINE WBC 982 /uL (0-25.8)
[2024-07-25 17:00] VITALS: BP 105/62; PULSE 70; TEMP 98.2
[2024-07-25 20:44] LABS: URINE RBC 7.7 /uL (0-23.9)
== END 2024-07-25 17:40 | disposition home or self-care (01) ==
LOC: JER 12:54
PROC: 0T9B70Z Drainage of Bladder with Drainage Device, Via Natural or Artificial Opening (ICD-10-PCS; principal; 2024-07-25)
DX: N39.0 Urinary tract infection, site not specified (principal); R09.89 Other specified symptoms and signs involving the circulatory and respiratory systems
CPT/HCPCS: 51702; 71045-TC-FY; 81003; 87086; 87186; 99284-25